=== PATIENT | female | born 1945 | race Caucasian/White ===

== ENCOUNTER 2019-12-31 12:53 | Outpatient (CLI) | payer MEDICARE, SELFPAY ==
--- NOTE | ~2019-12-31 | US_ITS ---
EXAMINATION: US renal BI EXAM DATE: 12/31/2019 13:56 INDICATION: Abdominal pain. TECHNIQUE: Multiple grayscale and Doppler images of the kidneys were obtained (by a technologist who performed the scan) and subsequently reviewed. There is no prior study for comparison. FINDINGS: Right kidney: There is normal contour and echogenicity. It measures 9.5 x 6.0 x 5.8 centimeters. Th ere are no focal renal lesions identified. There is no hydronephrosis. Left kidney: There is normal contour and echogenicity. It measures 9.1 x 4.3 x 4.0 centimeters. The re are no focal renal lesions identified. There is no hydronephrosis. Bladder unremarkable. IMPRESSION: 1. Sonographically unremarkable kidneys. Reviewed, dictated and finalized at location B.
== END 2019-12-31 12:54 | disposition home or self-care (01) ==
PROVIDERS: PCP Physician Assistant Medical; Visit Provider Nurse Practitioner Family
DX: R10.9 Unspecified abdominal pain (principal)
CPT/HCPCS: 76775

== ENCOUNTER 2020-02-03 05:06 | Emergency (ER) | payer MEDICARE, SELFPAY ==
--- NOTE | ~2020-02-03 | XR_ITS ---
XR chest 2V DATE: 02/03/2020 05:48 INDICATION: Cough, dyspnea, wheezing, shortness of breath TECHNIQUE: PA and lateral views COMPARISON: 04/26/2019 PA and lateral chest FINDINGS: Normal heart size. No hilar or mediastinal enlargement. No pulmonary infiltrate or consolid ation, pleural effusion or pulmonary vascular congestion or pneumothorax. Calcified pulmonary granulo ma of the middle lobe. Diffuse osteopenia. Mild dextroscoliosis of the thoracic spine. Surgical clips, right upper quadrant, consistent with cholecystectomy. IMPRESSION: No active cardiopulmonary disease Reviewed, dictated and finalized at location A.
[2020-02-03 05:07] VITALS: BP 125/76; PULSE 90; RESP 20; TEMP 36.8; O2SAT 97
--- NOTE | 2020-02-03 05:09 | ED.ASTHMA ---
HPI - Asthma General Chief Complaint: Asthma Stated Complaint: SOB Time Seen by Provider: 02/03/20 05:09 Source: patient and EMS Mode of arrival: EMS Limitations: no limitations History of Present Illness HPI Narrative: Patient is a 74-year-old female with a history of asthma who presents for evaluation of shortness of breath and chest pain. Patient states that she started feeling unwell over the course of the evening with increasing shortness of breath. She was using her albuterol inhaler at home without much improvement in her symptoms. She reported a tightness over her chest that was worse with any coughing or movement. She denies any current chest pain. She denies productive cough or fever. Patient denies leg swelling, calf pain or history of blood clot. Per EMS, when they arrived to her house, patient had audible expiratory wheezing and tachypnea. Patient was given 6 puffs in a row on her inhalers with much improvement in her symptoms. Related Data Home Medications Medication Instructions Recorded Confirmed buspirone 7.5 mg tablet 7.5 mg PO BID 04/26/19 11/03/19 fluticasone furoate 200 1 inhalation INHALATION Q24H 04/26/19 11/03/19 mcg-vilanterol 25 mcg/dose inhalation powder Allergies Allergy/AdvReac Type Severity Reaction Status Date / Time vancomycin Allergy Mild Rash Verified 02/03/20 05:19 Review of Systems Review of Systems: Narrative: CONSTITUTIONAL: Denies fever, chills ENT: Denies rhinorrhea, congestion, sore throat, or otalgia. CARDIOVASCULAR: Denies current chest pain, palpitations, or edema. RESPIRATORY: Reports cough and shortness of breath GASTROINTESTINAL: Denies abdominal pain, nausea, vomiting, or diarrhea. GENITOURINARY: Denies dysuria or hematuria. SKIN: Denies rash or itching. MUSCULOSKELETAL: Denies back pain, joint pain, or myalgia. NEUROLOGIC: Denies headache, numbness, or weakness. [facility] Past Medical History Medical History (Updated 02/03/20 @ 07:03 by Mary Fan MD) Bronchitis Cough present for greater than 3 weeks Essential hypertension Major depressive disorder, single episode, unspecified Seasonal allergies Shortness of breath Social History Social History Smoking status: Never smoker Smoking end date: 04/07/1966 Alcohol intake: never Exam Narrative: Exam Narrative: GENERAL: Awake, alert, conversant HEAD: Normocephalic, atraumatic. EYES: PERRLA and EOMI. ENT: Nares clear, no rhinorrhea or epistaxis. Mucous membranes moist. NECK: Supple. CHEST: No respiratory distress, breathing even and non labored, mild expiratory wheezing, no crackles at the bases, no chest wall tenderness HEART: Regular rate, sinus rhythm ABDOMEN:Non distended, non tender EXTREMITIES: Normal range of motion. No edema. SKIN: Warm, dry, no rash. NEURO:No focal deficits. Alert and oriented x3 Course Vital Signs Vital signs: Vital Signs Temperature 36.8 C 02/03/20 05:07 Pulse Rate 90 02/03/20 05:07 Respiratory Rate 20 02/03/20 05:07 Blood Pressure 125/76 02/03/20 05:07 Pulse Oximetry 97 02/03/20 05:07 Temperature 36.8 C 02/03/20 05:07 Pulse Rate 85 02/03/20 05:57 Respiratory Rate 100 H 02/03/20 05:57 Blood Pressure 125/76 02/03/20 05:07 Pulse Oximetry 97 02/03/20 05:07 MDM - Asthma MDM Narrative Medical decision making narrative: Patient presenting for evaluation of shortness of breath, audible wheezing for EMS, patient given multiple albuterol puffer treatments in route and was basically asymptomatic at the time of arrival. Patient is in no respiratory distress. No increased work of breathing. Laboratory results are reassuring. Patient does not have anginal type symptoms. Chest wall pain is only with coughing. No inspiratory pain. Given no hypoxemia, no pleuritic chest pain, no anginal type pain, I doubt PE. Patient feeling much improved following DuoNeb treatment, steroids. I
--- NOTE | 2020-02-03 05:31 | ECG_ITS ---
Measurements Intervals [place] Rate: 90 P: 64 IA: 182 QRS: 47 QRSD: 90 T: 66 QT: 351 QTc: 431 Interpretive Statements SINUS RHYTHM BASELINE ARTIFACT- I, II, III, AVR, AVL, AVF NORMAL ECG Electronically Signed On 02-03-2020 7:16:59 CDT by Lupillo Thomason D.O.
[2020-02-03] MEDS: ALBUTEROL SULFATE NEB 2.5 MG/0.5 ML INH 5 MG INHALATION (05:50)
[2020-02-03] MEDS: IPRATROPIUM BR 0.02% INH SOLN 0.5 MG/2.5 ML VIAL INHALATION (05:50)
[2020-02-03 05:51] VITALS: PULSE 84; RESP 100
[2020-02-03 05:57] VITALS: PULSE 85; RESP 100
[2020-02-03] MEDS: ACETAMINOPHEN 500 MG TABLET 1000 MG PO (06:05)
[2020-02-03] MEDS: methylPREDNISolone SOD SUCC 125 MG VIAL IV PUSH (06:05)
[2020-02-03 06:22] LABS: Basophils Absolute Auto 0.1 K/mm3 (0.0-0.1); Basophils Percent Auto 0.7 % (0.2-1.2); Eosinophils Absolute Auto 0.9 K/mm3 (0-0.3); Hematocrit 39.8 % (37.0-47.0); Immature Granulocyte Absolute 0.03 K/mm3 (0.00-0.031); Immature Granulocyte Percent A 0.4 % (0-0.5); Lymphocytes Absolute Auto 1.77 K/mm3 (0.9-3.2); Lymphocytes Percent Auto 25.1 % (18.3-44.2); Mean Corpuscular HGB Conc 32.7 g/dl (32-36); Mean Corpuscular Hemoglobin 31.4 pg (26-34); Mean Corpuscular Volume 96.1 fl (80-100); Mean Platelet Volume 11.4 fl (7.4-10.4); Monocytes Absolute Auto 0.7 K/mm3 (0.1-0.6); Monocytes Percent Auto 9.2 % (2.6-8.5); Neutrophils Absolute Auto 3.7 K/mm3 (1.3-6.7); Neutrophils Percent Auto 52.6 % (45.5-73.1); Platelet Count Result 201 k/mm3 (150-375); Red Blood Count 4.14 M/mm3 (4.2-5.4); Red Cell Distribution Width 14.2 % (11.5-14.5); White Blood Count 7.1 K/mm3 (4.5-10.0)
[2020-02-03 06:29] LABS: Partial Thromboplastin Time 24.9 SECONDS (22.3-36.8); Prothrombin Time 12.9 Seconds (11.1-14.7)
[2020-02-03 06:32] LABS: Anion Gap 9 mmol/L (8-16); Blood Urea Nitrogen 11 mg/dL (7-17); Calcium 9.9 mg/dL (8.4-10.2); Carbon Dioxide 28 mmol/L (22-30); Chloride 104 mmol/L (98-107); Estimated CRCL calculation 46 ml/min; Estimated Glomerular Filt Rate > 60; Glucose 124 mg/dL (65-105); Potassium 3.9 mmol/L (3.4-5.0); Sodium 141 mmol/L (137-145)
[2020-02-03 06:42] LABS: NT Pro B Type Natriuretic Pept 107 PG/ML (5-100); Troponin I < 0.012 ng/mL (0.000-0.034)
[2020-02-03 09:00] VITALS: BP 104/69; PULSE 67; RESP 18; O2SAT 100
== END 2020-02-03 07:23 | disposition home or self-care (01) ==
PROVIDERS: Emergency Provider Emergency Medicine; PCP Physician Assistant Medical
DX: J45.901 Unspecified asthma with (acute) exacerbation (principal); I10 Essential (primary) hypertension; F32.9 Major depressive disorder, single episode, unspecified; R07.9 Chest pain, unspecified
CPT/HCPCS: 36415; 71046; 80048; 83880; 84484; 85025; 85610; 85730; 93005; 94640; 96374; 99284; A9270; J2930

== ENCOUNTER 2020-03-09 16:34 | Emergency (ER) | payer MEDICARE, SELFPAY ==
--- NOTE | ~2020-03-09 | CT_ITS ---
EXAMINATION: CT brain wo con DATE: 03/09/2020 17:16 INDICATION: Headache TECHNIQUE: Computed tomography (CT) of the head was performed without intravenous contrast. Sagittal and coronal reconstructions were performed. The mA was adjusted according to patient size. Iterative reconstruction technique was employed. The dose-length product was 605.33 mGy-cm. COMPARISON: head CT dated 05/02/2013 and brain MR dated 12/15/2017 FINDINGS: No acute intracranial hemorrhage, acute infarction or abnormal extra axial fluid collection. And mild periventricular white matter hypoattenuation consistent with chronic small vessel ischemic disease. Symmetric prominence of the sulci consistent with mild age-appropriate diffuse cerebral volume loss. Ventricles are normal and symmetric. No mass/mass effect. Changes of bilateral intraocular lens repl acement. Mucous retention cyst in the right maxillary sinus and mild mucosal thickening in the bilate ral ethmoid sinuses. The mastoid air cells are normal. Intracranial calcified cerebral atherosclerosi s is noted. IMPRESSION: 1. No acute intracranial process. 2. Age related changes including mild diffuse volume loss and mild periventricular white matter hypoa ttenuation consistent with chronic small vessel ischemic disease. Reviewed, dictated and finalized at location A. PTIC METEOROLOGIST IMPRESSION: 1. No acute intracranial process. 2. Age related changes including mild diffuse volume loss and mild periventricu lar white matter hypoattenuation consistent with chronic small vessel ischemic disease.
[2020-03-09 16:33] VITALS: BP 144/66; PULSE 95; RESP 18; TEMP 36.2; O2SAT 98
[2020-03-09 17:02] LABS: Basophils Percent Auto 0.1 % (0.2-1.2); Eosinophils Percent Auto 0.1 % (0-4.4); Hematocrit 37.6 % (37.0-47.0); Hemoglobin 12.4 g/dL (12.0-15.0); Immature Granulocyte Absolute 0.03 K/mm3 (0.00-0.031); Immature Granulocyte Percent A 0.4 % (0-0.5); Immature Platelet Fraction Pct 5.1 % (0.9-11.2); Lymphocytes Absolute Auto 0.57 K/mm3 (0.9-3.2); Lymphocytes Percent Auto 7.7 % (18.3-44.2); Mean Corpuscular Hemoglobin 32.1 pg (26-34); Mean Corpuscular Volume 97.4 fl (80-100); Mean Platelet Volume 10.8 fl (7.4-10.4); Monocytes Absolute Auto 0.6 K/mm3 (0.1-0.6); Monocytes Percent Auto 8.3 % (2.6-8.5); Neutrophils Absolute Auto 6.2 K/mm3 (1.3-6.7); Neutrophils Percent Auto 83.4 % (45.5-73.1); Platelet Count Result 146 k/mm3 (150-375); Red Blood Count 3.86 M/mm3 (4.2-5.4); Red Cell Distribution Width 13.9 % (11.5-14.5); White Blood Count 7.4 K/mm3 (4.5-10.0)
[2020-03-09] MEDS: SODIUM CHLORIDE 0.9% IV 1,000 ML 150 ML IV CONT (17:04)
[2020-03-09] MEDS: PROCHLORPERAZINE EDISYLATE 10 MG/2 ML VIAL 5 MG IV PUSH (17:04)
[2020-03-09] MEDS: KETOROLAC 30 MG/ML VIAL (*BKC) IV PUSH (17:04)
[2020-03-09 17:16] LABS: Anion Gap 7 mmol/L (8-16); Blood Urea Nitrogen 18 mg/dL (7-17); Calcium 9.4 mg/dL (8.4-10.2); Carbon Dioxide 29 mmol/L (22-30); Chloride 100 mmol/L (98-107); Estimated CRCL calculation 49 ml/min; Estimated Glomerular Filt Rate > 60; Glucose 104 mg/dL (65-105); Potassium 4.4 mmol/L (3.4-5.0); Sodium 136 mmol/L (137-145)
[2020-03-09 17:29] LABS: CRP 15.5 mg/dL (<1.0)
--- NOTE | 2020-03-09 18:16 | ED.HA ---
HPI - Headache General Chief Complaint: Headache Stated Complaint: [place] since 03/07/20 Time Seen by Provider: 03/09/20 16:35 Source: patient Mode of arrival: EMS Limitations: no limitations History of Present Illness HPI Narrative: 74-year-old with a history of headaches, hypertension was brought in ambulance from home with complaints of headache for past 2 days. Patient states that headache has been steady for last 2 days mostly on the right side of the head with occasional nausea. She denies any fever or chills. No history of trauma. No Covid exposure. Related Data Home Medications Medication Instructions Recorded Confirmed buspirone 7.5 mg tablet 7.5 mg PO BID 04/26/19 02/04/20 fluticasone furoate 200 1 inhalation INHALATION Q24H 04/26/19 02/04/20 mcg-vilanterol 25 mcg/dose inhalation powder Allergies Allergy/AdvReac Type Severity Reaction Status Date / Time vancomycin Allergy Mild Rash Verified 03/09/20 16:39 Review of Systems Review of Systems: All systems reviewed & are unremarkable except as noted in HPI and below Constitutional: Constitutional: Reports no additional constitutional complaints Eyes: Eyes: Reports no additional eye complaints ENT: Reports system reviewed and no additional complaints, except as documented Cardiovascular: Cardiovascular: Reports no additional cardiovascular complaints Respiratory: Respiratory: Reports no additional respiratory complaints Gastrointestinal: Gastrointestinal: Reports no additional gastrointestinal complaints Musculoskeletal: Musculoskeletal: Reports no additional musculoskeletal complaints Neurologic: Reports as per HPI PMFSH Past Medical History Medical History Bronchitis Cough present for greater than 3 weeks Essential hypertension Major depressive disorder, single episode, unspecified Seasonal allergies Shortness of breath Social History Social History Smoking status: Never smoker Smoking end date: 04/07/1966 Alcohol intake: never Exam Narrative: Exam Narrative: GENERAL: Well-appearing, well-nourished, and in no acute distress. HEAD: Normocephalic, atraumatic. EYES: PERRLA and EOMI NECK: Supple. CHEST: Clear to auscultation. No respiratory distress. HEART: Regular rate and rhythm. No murmur heard. Normal peripheral pulses. ABDOMEN: Soft, nontender, nondistended, normal active bowel sounds. EXTREMITIES: Normal range of motion. No edema. SKIN: Warm, dry, no rash. NEURO: No focal deficits. Alert and oriented x3. PSYCH: Normal mood and affect. Course Course Emergency Course: Did give her IV Toradol 30 mg along with 5 mg of Compazine and IV fluids did obtain CT of the head which was unremarkable, lab work seem to be normal. I reassessed the patient she states that she is feeling much better, headache has resolved I did inform the patient about her lab work, CT findings. She states that she is feeling much better to go home Vital Signs Vital signs: Vital Signs Temperature 36.2 C L 03/09/20 16:33 Pulse Rate 95 03/09/20 16:33 Respiratory Rate 18 03/09/20 16:33 Blood Pressure 144/66 H 03/09/20 16:33 Pulse Oximetry 98 03/09/20 16:33 Temperature 36.2 C L 03/09/20 16:33 Pulse Rate 95 03/09/20 16:33 Respiratory Rate 18 03/09/20 16:33 Blood Pressure 144/66 H 03/09/20 16:33 Pulse Oximetry 98 03/09/20 16:33 MDM - Headache Lab Data Result diagrams: 03/09/20 16:54 03/09/20 16:54 Labs: Lab Results 03/09/20 03/09/20 Range/Units 16:54 16:54 WBC 7.4 (4.5-10.0) K/mm3 RBC 3.86 L (4.2-5.4) M/mm3 Hgb 12.4 (12.0-15.0) g/dL Hct 37.6 (37.0-47.0) % MCV 97.4 (80-100) fl MCH 32.1 (26-34) pg MCHC 33.0 (32-36) g/dl RDW 13.9 (11.5-14.5) % Plt Count 146 L (150-375) k/mm3 MPV 10.8 H (7.4-10.4) fl Immature Gran % (Auto) 0.4 (0-0.5)
[2020-03-09 18:31] VITALS: BP 137/64; PULSE 93; RESP 18; O2SAT 96
== END 2020-03-09 18:35 | disposition home or self-care (01) ==
PROVIDERS: Emergency Provider Family Medicine; PCP Physician Assistant Medical
DX: G43.909 Migraine, unspecified, not intractable, without status migrainosus (principal); I10 Essential (primary) hypertension; F32.9 Major depressive disorder, single episode, unspecified
CPT/HCPCS: 36415; 70450; 80048; 85025; 85055; 86140; 96361; 96374; 96375; 99284; J0780; J1885; J7030

== ENCOUNTER 2020-09-20 09:38 | Emergency (ER) | payer MEDICARE, SELFPAY ==
[2020-09-20] VITALS (22 sets, daily range): BP systolic 108–180; BP diastolic 48–86; PULSE 74–106; RESP 15–29; TEMP 36.3; O2SAT 92–100
--- NOTE | ~2020-09-20 | XR_ITS ---
EXAMINATION: XR chest 1V portable EXAM DATE: 09/20/2020 10:36 INDICATION: Fever, cough. TECHNIQUE: Portable AP frontal chest x-ray was obtained. Comparison is made to prior examination from 02/03/2020. FINDINGS: Right midlung zone granuloma unchanged. The lungs are otherwise clear. There is no pneumoth orax suspected. There are no pleural effusions. Cardiomediastinal silhouette is normal. The bones are osteopenic. There are bony degenerative changes. Mild hyperinflation. IMPRESSION: No acute cardiopulmonary findings. Reviewed, dictated and finalized at location B.
--- NOTE | 2020-09-20 09:59 | ECG_ITS ---
Measurements Intervals [place] Rate: 87 P: 64 RI: 180 QRS: 46 QRSD: 86 T: 57 QT: 348 QTc: 419 Interpretive Statements SINUS RHYTHM NORMAL ECG Electronically Signed On 09-20-2020 10:26:36 CDT by Lupillo Thomason D.O.
--- NOTE | 2020-09-20 10:02 | ED.SOB ---
HPI - SOB/Dyspnea General Chief Complaint: Shortness of Breath/Dyspnea Stated Complaint: SOB Time Seen by Provider: 09/20/20 09:40 Source: patient and RN notes reviewed Mode of arrival: ambulatory Limitations: no limitations History of Present Illness HPI Narrative: Patient is a 74-year-old female who presents with shortness of breath for the last 3 to 4 days patient notes history of asthma has been using her inhalers and nebulizer with minimal improvement patient notes cough productive of clear phlegm patient denies fever chills or other URI symptoms or sick contacts patient has not been vaccinated for Covid patient lives at home with family with smokers but they smoke outside. Patient has not been seen for this complaint. Patient denies any chest pain or abdominal pain Related Data Home Medications Medication Instructions Recorded Confirmed buspirone 7.5 mg tablet 7.5 mg PO BID 04/26/19 04/19/20 fluticasone furoate 200 1 inhalation INHALATION Q24H 04/26/19 04/19/20 mcg-vilanterol 25 mcg/dose inhalation powder Allergies Allergy/AdvReac Type Severity Reaction Status Date / Time vancomycin Allergy Mild Rash Verified 09/20/20 10:02 Review of Systems Review of Systems: All systems reviewed & are unremarkable except as noted in HPI and below PMFSH Past Medical History Medical History BMI 28.0-28.9,adult Bronchitis Cough present for greater than 3 weeks Essential hypertension Major depressive disorder, single episode, unspecified Seasonal allergies Shortness of breath Social History Social History Smoking status: Never smoker Smoking end date: 04/07/1966 Alcohol intake: never Gender identity (if verbalized by the patient): Female Exam Narrative: Exam Narrative: GENERAL: Well-appearing, well-nourished, and in no acute distress. HEAD: Normocephalic, atraumatic. EYES: PERRLA and EOMI. ENT: Nares clear, no rhinorrhea or epistaxis. Mucous membranes moist. CHEST: Diminished on auscultation. No respiratory distress. Patient with expiratory wheezes throughout the lung barry HEART: Regular rate and rhythm. No murmur heard. Normal peripheral pulses. ABDOMEN: Soft, nontender, nondistended EXTREMITIES: Normal range of motion. No edema. SKIN: Warm, dry, no rash. NEURO: No focal deficits. Alert and oriented x3. Cranial nerves II through XII grossly intact PSYCH: Normal mood and affect. Course Course Emergency Course: Patient in the room at this time in no distress aware of case findings treatment plan and diagnosis. Patient agrees to follow-up as instructed and will return if symptoms worsen or concerns Vital Signs Vital signs: Vital Signs Temperature 97.4 F L 09/20/20 09:45 Pulse Rate 88 09/20/20 09:45 Respiratory Rate 16 09/20/20 09:45 Blood Pressure 180/86 H 09/20/20 09:45 Pulse Oximetry 98 09/20/20 09:45 Temperature 97.4 F L 09/20/20 09:45 Pulse Rate 100 09/20/20 13:11 Respiratory Rate 19 09/20/20 13:11 Blood Pressure 180/86 H 09/20/20 09:45 Pulse Oximetry 98 09/20/20 09:45 MDM - SOB/Dyspnea MDM Narrative Medical decision making narrative: Patient presented with asthma exacerbation no URI symptoms patient with likely asthma exacerbation was given an hour-long treatment with marked improvement no hypoxemia no pneumonia agreeing to follow-up with primary care as instructed has nebulizer at home as well as rescue inhalers was given an MDI patient feels comfortable with this treatment plan and also agrees to return if symptoms worsen or concerns ABCs and vital signs intact and stable Lab Data Result diagrams: 09/20/20 10:04 09/20/20 10:03 Labs: Lab Results 09/20/20 09/20/20 09/20/20 Range/Units 10:03 10:03 10:04 WBC 6.4 (4.5-10.0) K/mm3 RBC 4.10 L (4.2-5.4) M/mm3 Hgb 11.8 L (12.0-15.0) g/dL Hct 37.8
[2020-09-20] MEDS: ALBUTEROL SULFATE NEB 2.5 MG/0.5 ML INH 5 MG INHALATION (10:10)
[2020-09-20] MEDS: IPRATROPIUM BR 0.02% INH SOLN 0.5 MG/2.5 ML VIAL INHALATION (10:10)
[2020-09-20 10:18] LABS: Basophils Absolute Auto 0.1 K/mm3 (0.0-0.1); Basophils Percent Auto 0.8 % (0.2-1.2); Eosinophils Absolute Auto 0.7 K/mm3 (0-0.3); Eosinophils Percent Auto 11.2 % (0-4.4); Hematocrit 37.8 % (37.0-47.0); Hemoglobin 11.8 g/dL (12.0-15.0); Immature Granulocyte Absolute 0.02 K/mm3 (0.00-0.031); Immature Granulocyte Percent A 0.3 % (0-0.5); Lymphocytes Percent Auto 20.5 % (18.3-44.2); Mean Corpuscular HGB Conc 31.2 g/dl (32-36); Mean Corpuscular Hemoglobin 28.8 pg (26-34); Mean Corpuscular Volume 92.2 fl (80-100); Mean Platelet Volume 10.7 fl (7.4-10.4); Monocytes Absolute Auto 0.7 K/mm3 (0.1-0.6); Monocytes Percent Auto 11.3 % (2.6-8.5); Neutrophils Absolute Auto 3.6 K/mm3 (1.3-6.7); Neutrophils Percent Auto 55.9 % (45.5-73.1); Platelet Count Result 211 k/mm3 (150-375); Red Cell Distribution Width 15.6 % (11.5-14.5); White Blood Count 6.4 K/mm3 (4.5-10.0)
[2020-09-20] MEDS: MAGNESIUM SULF 2 GM/WATER 50ML 2 GM/50 ML BAG IVPB (10:21)
[2020-09-20] MEDS: methylPREDNISolone SOD SUCC 125 MG VIAL IV PUSH (10:21)
[2020-09-20 10:23] LABS: Alanine Aminotransferase 18 U/L (4-35); Albumin Level 4.2 g/dL (3.5-5.1); Alkaline Phosphatase 133 U/L (38-126); Anion Gap 8 mmol/L (8-16); Aspartate Amino Transferase 34 U/L (14-36); Bilirubin,Total 0.5 mg/dL (0.2-1.3); Blood Urea Nitrogen 9 mg/dL (7-17); Calcium 9.7 mg/dL (8.4-10.2); Carbon Dioxide 28 mmol/L (22-30); Chloride 104 mmol/L (98-107); Estimated CRCL calculation 43 ml/min; Estimated Glomerular Filt Rate 54; Glucose 101 mg/dL (65-105); INR 0.9; Potassium 4.3 mmol/L (3.4-5.0); Prothrombin Time 12.6 Seconds (11.1-14.7); Sodium 140 mmol/L (137-145)
[2020-09-20 10:24] LABS: Partial Thromboplastin Time 24.8 SECONDS (22.3-36.8)
[2020-09-20 10:34] LABS: Troponin I < 0.012 ng/mL (0.000-0.034)
[2020-09-20 10:54] LABS: Add Urine Microscopic? NO; Appearance Urine Clear (Clear); Bilirubin Urine Negative (Negative); Blood Urine Negative (Negative); Color Urine Straw (Yellow); Glucose Urine UA Negative (Negative); Ketones Urine Negative (Negative); Leukocyte Esterase Ur Negative LEU/UL (Negative); Nitrate Urine Negative (Negative); Protein Urine Negative (Negative); Specific Grav Ur 1.006 (1.001-1.035); Urobilinogen Urine Negative mg/dL (<2.0)
[2020-09-20] MEDS: ALBUTEROL SULFATE NEB 2.5 MG/0.5 ML INH 20 MG INHALATION (12:02)
[2020-09-20 13:53] LABS: Troponin I < 0.012 ng/mL (0.000-0.034)
[2020-09-21 17:59] LABS: SARS-CoV-2 RNA PCR Negative
== END 2020-09-20 15:00 | disposition home or self-care (01) ==
PROVIDERS: Emergency Medicine Emergency Medical Services; Emergency Provider Emergency Medicine; PCP Physician Assistant Medical
DX: J20.9 Acute bronchitis, unspecified (principal); J45.909 Unspecified asthma, uncomplicated; I10 Essential (primary) hypertension; F32.9 Major depressive disorder, single episode, unspecified; Z20.822 Contact with and (suspected) exposure to COVID-19
CPT/HCPCS: 36415; 71045; 80053; 81003; 84484; 85025; 85610; 85730; 93005; 94640; 96365; 96375; 99284; C9803; J2930; J3475; U0003; U0005

== ENCOUNTER 2020-12-27 07:45 | Outpatient (CLI) | payer MEDICARE, SELFPAY ==
--- NOTE | ~2020-12-27 | US_ITS ---
US art doppler w press LE BI INDICATION: Right toe pain TECHNIQUE: Segmental pressures and plethysmographic and Doppler waveforms of the brachial and lower e xtremity arteries were obtained. COMPARISON: None. FINDINGS: Right and left brachial artery pressures of 161 mm Hg and 161 mm Hg, respectively, are concordant (no rmal difference <= 30 mmHg). The right ankle-brachial index (BRODY) is 1.11 (normal >= 0.9-1.0). The right great toe-brachial index (TBI) is 0.82 (normal >= 0.60). The left BRODY is 1.13. The left TBI is 0.96. IMPRESSION: 1. Normal bilateral ankle and toe brachial indices. Reviewed, dictated and finalized at location A.
== END 2020-12-27 07:46 | disposition home or self-care (01) ==
PROVIDERS: PCP Family Medicine; Visit Provider Nurse Practitioner Family
DX: M79.674 Pain in right toe(s) (principal); M79.89 Other specified soft tissue disorders
CPT/HCPCS: 93923

== ENCOUNTER 2021-02-26 08:26 | Emergency (ER) | payer MEDICARE, SELFPAY ==
--- NOTE | ~2021-02-26 | CT_ITS ---
EXAMINATION: CT brain wo con EXAM DATE: 02/26/2021 08:43 INDICATION: Headache, left ear infection. TECHNIQUE: Spiral CT of the head was performed without contrast. Axial, coronal and sagittal images were reviewed. The dose-length product (DLP) for this examination was 605.33 mGy-cm. The exposure w as tailored according to patient size, and iterative reconstruction (ASIR) was used as additional dos e reduction technique. Comparison is made to prior examination from 03/09/2020. FINDINGS: There is no acute intraparenchymal hemorrhage. No evidence of intraparenchymal brain mass lesion. No evidence of acute infarction. Please note that initial head CT has limited sensitivity f or small or acute infarctions. There is mild periventricular and subcortical hypodensity, nonspecific but probably related to small vessel ischemic disease. There is moderate prominence of the sulci a nd ventricles related to cerebral atrophy. There is intracranial carotid arteriosclerosis. There a re no extra-axial collections. There is no mass effect or midline shift. Patient has had bilateral ocular lens surgery. Soft tissue is unremarkable. The visualized sinuses and mastoid air cells are well aerated. The middle ears are also well aerated. IMPRESSION: 1. No acute intracranial findings. 2. Chronic age related findings. 3. Clear mastoid air cells and middle ears. Reviewed, dictated and finalized at location A. CHOPPER
[2021-02-26 08:29] VITALS: BP 129/87; PULSE 84; RESP 14; O2SAT 98
--- NOTE | 2021-02-26 08:47 | ED.HA ---
HPI - Headache General Chief Complaint: Headache Stated Complaint: headache Time Seen by Provider: 02/26/21 08:32 Source: patient Mode of arrival: ambulatory Limitations: no limitations History of Present Illness HPI Narrative: Patient is a 75-year-old female complaining of a headache, generalized, 6 out of 10, currently 0 out of 10, started 3 days ago. Patient states that she has a history of moderate headaches, and this is her typical headache. Patient was seen here approximately 1 year ago for the same complaint, had a CT scan of her head did not show any acute cranial process. Patient denies any speech or visual disturbance, focal weakness or numbness, unsteady gait, dizziness, pain, nausea, vomiting, fever or chills. Related Data Home Medications Medication Instructions Recorded Confirmed buspirone 7.5 mg tablet 7.5 mg PO BID 04/26/19 01/22/21 Allergies Allergy/AdvReac Type Severity Reaction Status Date / Time vancomycin Allergy Mild Rash Verified 02/26/21 08:52 Review of Systems Review of Systems: All systems reviewed & are unremarkable except as noted in HPI and below Constitutional: Constitutional: Denies body ache(s), Denies chills, Denies excessive sweating, Denies fatigue, Denies fever(s), Denies headache(s), Denies lethargy, Denies malaise, Denies weakness and Denies weight loss Eyes: Eyes: Denies blurry vision, Denies change in vision and Denies loss of vision ENT: Denies dizziness, Denies ear discharge, Denies headache(s), Denies lip swelling, Denies epistaxis, Denies nasal congestion, Denies neck pain, Denies throat swelling and Denies tongue swelling Cardiovascular: Cardiovascular: Denies chest pain, Denies chest pain at rest, Denies chest pain with activity, Denies diaphoresis, Denies rapid heart rate, Denies edema, Denies irregular heart rhythm, Denies lightheadedness, Denies palpitations, Denies dyspnea and Denies dyspnea on exertion Respiratory: Respiratory: Denies chest congestion, Denies cough, Denies hemoptysis, Denies dyspnea and Denies dyspnea on exertion Gastrointestinal: Gastrointestinal: Denies abdominal pain, Denies melena, Denies hematochezia, Denies diarrhea, Denies nausea, Denies vomiting and Denies hematemesis Musculoskeletal: Musculoskeletal: Denies abnormal gait, Denies deformity, Denies joint swelling, Denies limited range of motion, Denies neck pain and Denies numbness Neurologic: Denies Abnormal speech present, Denies abnormal gait, Denies confusion, Denies dizziness, Denies focal weakness, Denies loss of vision, Denies numbness, Denies Other visual disturbances, Denies Sensory deficit (Neuro) and Denies weakness Psychiatric: Psychiatric: Denies confusion, Denies depression, Denies auditory hallucinations, Denies homicidal ideation and Denies suicidal ideation Endocrine: Endocrine: Denies cold intolerance, Denies excessive sweating, Denies fatigue, Denies heat intolerance and Denies palpitations Hematologic/Lymphatic: Hematologic/Lymphatic: Denies easy bleeding and Denies easy bruising Allergic/Immunologic: Allergic/Immunologic: Denies lip swelling, Denies throat swelling and Denies tongue swelling PMFSH Past Medical History Medical History BMI 26.0-26.9,adult BMI 28.0-28.9,adult BMI 29.0-29.9,adult Bronchitis Cough present for greater than 3 weeks Essential hypertension Major depressive disorder, single episode, unspecified Other specified symptoms and signs involving the circulatory and respiratory systems Pain in right toe(s) Seasonal allergies Shortness of breath Family History Family History Father Cancer H/O cirrhosis Mother Acute myocardial infarction Sibling Cancer Sibling Cancer Tobacco abuse Social History Social History Tobacco type: cigarettes S
[2021-02-26 09:03] LABS: Basophils Absolute Auto 0.1 K/mm3 (0.0-0.1); Basophils Percent Auto 1.1 % (0.2-1.2); Eosinophils Absolute Auto 0.4 K/mm3 (0-0.3); Eosinophils Percent Auto 7.6 % (0-4.4); Hematocrit 37.9 % (37.0-47.0); Hemoglobin 12.7 g/dL (12.0-15.0); Immature Granulocyte Absolute 0.01 K/mm3 (0.00-0.031); Immature Granulocyte Percent A 0.2 % (0-0.5); Lymphocytes Absolute Auto 1.44 K/mm3 (0.9-3.2); Lymphocytes Percent Auto 26.6 % (18.3-44.2); Mean Corpuscular HGB Conc 33.5 g/dl (32-36); Mean Corpuscular Hemoglobin 31.8 pg (26-34); Mean Platelet Volume 10.5 fl (7.4-10.4); Monocytes Absolute Auto 0.6 K/mm3 (0.1-0.6); Monocytes Percent Auto 11.6 % (2.6-8.5); Neutrophils Absolute Auto 2.9 K/mm3 (1.3-6.7); Neutrophils Percent Auto 52.9 % (45.5-73.1); Platelet Count Result 213 k/mm3 (150-375); Red Blood Count 3.99 M/mm3 (4.2-5.4); Red Cell Distribution Width 12.7 % (11.5-14.5); White Blood Count 5.4 K/mm3 (4.5-10.0)
[2021-02-26 09:54] LABS: Anion Gap 4 mmol/L (8-16); Blood Urea Nitrogen 10 mg/dL (7-17); Calcium 9.7 mg/dL (8.4-10.2); Carbon Dioxide 29 mmol/L (22-30); Chloride 106 mmol/L (98-107); Estimated CRCL calculation 41 ml/min; Estimated Glomerular Filt Rate > 60; Glucose 90 mg/dL (65-110); Potassium 4.6 mmol/L (3.4-5.0); Sodium 139 mmol/L (137-145)
[2021-02-26] MEDS: KETOROLAC 30 MG/ML VIAL (*BKC) IM (10:51)
[2021-02-26 12:15] VITALS: BP 128/83; PULSE 83; RESP 18; O2SAT 99
== END 2021-02-26 12:16 | disposition home or self-care (01) ==
PROVIDERS: Emergency Provider Emergency Medicine
DX: G43.909 Migraine, unspecified, not intractable, without status migrainosus (principal); I10 Essential (primary) hypertension; F32.9 Major depressive disorder, single episode, unspecified; Z87.891 Personal history of nicotine dependence
CPT/HCPCS: 36415; 70450; 80048; 85025; 96372; 99284; J1885

== ENCOUNTER 2021-05-17 12:53 | Emergency (ER) | payer MEDICARE, SELFPAY ==
[2021-05-17 12:57] VITALS: BP 99/55; PULSE 104; RESP 17; TEMP 36.2; O2SAT 100
--- NOTE | 2021-05-17 13:10 | PC.NURSE ---
pt states has a test here on june 06 for the foot and leg numbness she has had for the last year. states today numbness went up both of her legs and states they felt like rubber. pt denies history of diabetes
--- NOTE | 2021-05-17 13:34 | ED.EXTPRO ---
HPI - Extremity Problem General Chief complaint: Extremity Problem,Nontraumatic Stated complaint: numbess in adrien legs Time Seen by Provider: 05/17/21 13:22 Source: patient Mode of arrival: ambulatory Limitations: no limitations History of Present Illness HPI Narrative: Patient 75 years old white female reports over the emergency room because of worsening of the tingling numbness of the feet and lower extremities over the last few days. Patient is telling me that she have tingling numbness of the feet over 1 year ago, was seen by her family physician recently on the schedule for a test on June 06, 2021. Patient yesterday went out for shopping and felt like walking on a rubbery floor. Patient denies any fever, chills, nausea, vomiting, weakness or focal neuro deficit. Patient also denies any back pain. Patient denies patient denies bowel dysfunction, bladder dysfunction, altered sensation, focal weakness, or saddle numbness, Related Data Home Medications Medication Instructions Recorded Confirmed buspirone 7.5 mg tablet 7.5 mg PO BID 04/26/19 01/22/21 Allergies Allergy/AdvReac Type Severity Reaction Status Date / Time vancomycin Allergy Mild Rash Verified 05/17/21 13:12 Review of Systems Review of Systems: CONSTITUTIONAL: Denies fever, chills, or sweats. EYES: Denies visual changes, redness, or discharge. ENT: Denies rhinorrhea, congestion, sore throat, or otalgia. CARDIOVASCULAR: Denies chest pain, palpitations, or edema. RESPIRATORY: Denies cough or dyspnea. GASTROINTESTINAL: Denies abdominal pain, nausea, vomiting, or diarrhea. GENITOURINARY: Denies dysuria or hematuria. SKIN: Denies rash or itching. MUSCULOSKELETAL: Denies back pain, joint pain, or myalgia. NEUROLOGIC: Denies headache, numbness, or weakness. PSYCHIATRIC: Denies anxiety or depression. [facility] Past Medical History Medical History BMI 26.0-26.9,adult BMI 28.0-28.9,adult BMI 29.0-29.9,adult Bronchitis Cough present for greater than 3 weeks Essential hypertension Major depressive disorder, single episode, unspecified Other specified symptoms and signs involving the circulatory and respiratory systems Pain in right toe(s) Seasonal allergies Shortness of breath Family History Family History Father Cancer H/O cirrhosis Mother Acute myocardial infarction Sibling Cancer Sibling Cancer Tobacco abuse Social History Social History Tobacco type: cigarettes Smoking end date: 04/07/1966 Alcohol intake: former Substance use: never Substance use type: does not use Additional occupation/education comments: [employer] Gender identity (if verbalized by the patient): Female Exam Narrative: General appearance: Well-developed, well-nourished Skin: Normal color Head: Normocephalic, nontraumatic Eyes: Clear conjunctiva ENT: Oropharynx normal, ears normal, nose normal Neck: Supple, nontender Chest and respiratory: Airway patent, no respiratory distress, no accessory muscle use Heart: Regular rate/rhythm Abdomen: Soft, nontender, no organomegaly, quiet bowel sounds Vascular: Normal peripheral pulses, normal capillary refill. Musculoskeletal: Normal range of motion, nontender back Neurologic: Alert and oriented ?3, decreased sensation on the feet and distal legs bilaterally, no gross motor deficit Course Course Emergency Course: Stable Vital Signs Vital signs: Vital Signs Temperature 36.2 C L 05/17/21 12:57 Pulse Rate 104 H 05/17/21 12:5
[2021-05-17 13:48] LABS: Basophils Percent Auto 0.8 % (0.2-1.2); Eosinophils Absolute Auto 0.2 K/mm3 (0-0.3); Eosinophils Percent Auto 5.2 % (0-4.4); Hematocrit 37.3 % (37.0-47.0); Hemoglobin 12.2 g/dL (12.0-15.0); Immature Granulocyte Absolute 0.02 K/mm3 (0.00-0.031); Immature Granulocyte Percent A 0.5 % (0-0.5); Mean Corpuscular HGB Conc 32.7 g/dl (32-36); Mean Corpuscular Hemoglobin 30.7 pg (26-34); Mean Corpuscular Volume 93.7 fl (80-100); Monocytes Absolute Auto 0.5 K/mm3 (0.1-0.6); Monocytes Percent Auto 13.6 % (2.6-8.5); Neutrophils Absolute Auto 2.2 K/mm3 (1.3-6.7); Neutrophils Percent Auto 58.9 % (45.5-73.1); Platelet Count Result 214 k/mm3 (150-375); Red Blood Count 3.98 M/mm3 (4.2-5.4); Red Cell Distribution Width 13.9 % (11.5-14.5); White Blood Count 3.8 K/mm3 (4.5-10.0)
[2021-05-17 14:28] LABS: Alanine Aminotransferase 18 U/L (4-35); Albumin Level 4.2 g/dL (3.5-5.1); Alkaline Phosphatase 135 U/L (38-126); Anion Gap 7 mmol/L (8-16); Aspartate Amino Transferase 27 U/L (14-36); Bilirubin,Total 0.6 mg/dL (0.2-1.3); Blood Urea Nitrogen 18 mg/dL (7-17); Calcium 9.7 mg/dL (8.4-10.2); Carbon Dioxide 25 mmol/L (22-30); Chloride 108 mmol/L (98-107); Estimated CRCL calculation 34 ml/min; Estimated Glomerular Filt Rate 48; Glucose 103 mg/dL (65-110); Potassium 4.1 mmol/L (3.4-5.0); Sodium 140 mmol/L (137-145)
[2021-05-17 14:56] LABS: Thyroid Stimulating Hormone 0.966 uIU/mL (0.465-4.680)
[2021-05-17 16:30] VITALS: BP 113/69; PULSE 85; RESP 19
== END 2021-05-17 16:30 | disposition home or self-care (01) ==
PROVIDERS: Emergency Provider Emergency Medicine; PCP Family Medicine
DX: G62.9 Polyneuropathy, unspecified (principal); Z87.891 Personal history of nicotine dependence; I10 Essential (primary) hypertension; F32.9 Major depressive disorder, single episode, unspecified
CPT/HCPCS: 36415; 80053; 84443; 85025; 99283

== ENCOUNTER 2021-06-06 08:36 | Outpatient (CLI) | payer MEDICARE, SELFPAY ==
--- NOTE | 2021-06-06 11:00 | NEURO_ITS ---
Impression: # Complains of numbness of feet. 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 # No Tarsal Tunnel Syndrome noted. # Needle/EMG exam neurogenic with no active denervation. # Clinical correlation recommended. Nerve Conduction Studies Anti Sensory Summary Table Stim Site NR Peak (ms) P-T Amp (?V) Site1 Site2 Delta-P (ms) Dist (cm) [place] (m/s) Left Sup Fibular Anti Sensory (Ant Lat Mall) NO RESPONSE 14 cm NR 14 cm Ant Lat Mall 16.0 Right Sup Fibular Anti Sensory (Ant Lat Mall) 14 cm 3.5 10.0 14 cm Ant Lat Mall 3.5 16.0 46 Left Sural Anti Sensory (Lat Mall) NO RESPONSE Calf NR Calf Lat Mall 16.0 Right Sural Anti Sensory (Lat Mall) Calf 3.7 15.2 Calf Lat Mall 3.7 16.0 43 Motor Summary Table Stim Site NR Onset (ms) O-P Amp (mV) Site1 Site2 Delta-0 (ms) Dist (cm) [place] (m/s) Left Lateral Plantar Motor (ADM) Med Mall 4.8 0.4 Right Lateral Plantar Motor (ADM) Med Mall 4.8 0.2 Left Peroneal Motor (Vastus Med) Ankle 5.3 2.0 Popit Ankle 9.5 38.0 40 Popit 14.8 2.0 Right Peroneal Motor (Vastus Med) Ankle 5.8 1.6 Popit Ankle 8.7 38.0 44 Popit 14.5 1.2 Left Tibial Motor (Abd [place] Brev) Ankle 4.9 0.4 Knee Ankle 14.1 43.0 30 Knee 19.0 0.7 Right Tibial Motor (Abd [place] Brev) Ankle 5.6 0.4 Knee Ankle 10.3 41.0 40 Knee 15.9 0.2 F Wave Studies NR F-Lat (ms) L-R F-Lat (ms) Left Peroneal (Mrkrs) (EDB) 56.83 1.92 Right Peroneal (Mrkrs) (EDB) 58.75 1.92 Left Tibial (Mrkrs) (Abd Hallucis) 59.30 0.58 Right Tibial (Mrkrs) (Abd Hallucis) 58.71 0.58 EMG Side Muscle Nerve Root Ins Act Fibs Amp Dur Recrt Comment Right AntTibialis Dp Br Fibular L4-5 Nml Nml Nml Nml Nml Right Gastroc Tibial S1-2 Nml Nml Nml Nml Nml Right Fibularis Long Sup Br Fibular L5-S1 Nml Nml Nml Nml Nml Right Flex Dig Long Tibial L5-S2 Nml Nml Nml Nml Nml Right Ext Dig Brev Dp Br Fibular L5, S1 Nml Nml Nml >12ms Reduced Left AntTibialis Dp Br Fibular L4-5 Nml Nml Nml Nml Nml Left Gastroc Tibial S1-2 Nml Nml Nml Nml Nml Left Fibularis Long Sup Br Fibular L5-S1 Nml Nml Nml Nml Nml Left Flex Dig Long Tibial L5-S2 Nml Nml Nml Nml Nml Left Ext Dig Brev Dp Br Fibular L5, S1 Nml Nml Nml >12ms Reduced MTDD
== END 2021-06-06 08:37 | disposition home or self-care (01) ==
LOC: ANHNEURO 08:37
PROVIDERS: PCP Family Medicine; Visit Provider Nurse Practitioner Family
DX: R20.2 Paresthesia of skin (principal); G62.9 Polyneuropathy, unspecified
CPT/HCPCS: 95886; 95911

== ENCOUNTER 2021-09-26 11:23 | Outpatient (CLI) | payer MEDICARE, SELFPAY ==
[2021-09-26 12:04] LABS: Anion Gap 7 mmol/L (8-16); Blood Urea Nitrogen 13 mg/dL (7-17); Calcium 8.7 mg/dL (8.4-10.2); Carbon Dioxide 24 mmol/L (22-30); Chloride 109 mmol/L (98-107); Estimated Glomerular Filt Rate > 60; Glucose 132 mg/dL (65-110); Potassium 4.1 mmol/L (3.4-5.0); Sodium 140 mmol/L (137-145)
== END 2021-09-26 11:24 | disposition home or self-care (01) ==
LOC: ANHLAB 11:25
PROVIDERS: PCP Family Medicine; Visit Provider Nurse Practitioner Family
DX: M79.89 Other specified soft tissue disorders (principal); N28.9 Disorder of kidney and ureter, unspecified
CPT/HCPCS: 36415; 80048

== ENCOUNTER 2021-10-18 11:41 | Outpatient (CLI) | payer MEDICARE, SELFPAY ==
[2021-10-18 13:03] LABS: Hemoglobin A1C 5.6 % (<5.7)
== END 2021-10-18 11:42 | disposition home or self-care (01) ==
LOC: ANHLAB 11:43
PROVIDERS: PCP Family Medicine; Visit Provider Nurse Practitioner Family
DX: R73.09 Other abnormal glucose (principal)
CPT/HCPCS: 36415; 83036

== ENCOUNTER 2021-11-27 15:20 | Outpatient (CLI) | payer MEDICARE, SELFPAY ==
--- NOTE | ~2021-11-27 | MR_ITS ---
EXAMINATION: MR brain/brain stem wo con DATE: 11/27/2021 16:09 INDICATION: Headaches TECHNIQUE: Magnetic resonance imaging (MRI) of the brain and brainstem was performed without intraven ous contrast. Sequences included sagittal and axial T1-weighted SE, axial diffusion-weighted FS SE, a xial T2*-weighted GRE, axial 3D SWAN, axial T2-weighted FLAIR, and axial T2-weighted FSE. Apparent di ffusion coefficient (ADC) maps were created. COMPARISON: Head CT dated 02/26/2021 and brain MR dated FINDINGS: There are no areas of restricted diffusion to suggest acute infarction. No intracranial hemorrhage or abnormal intracranial mass lesion. There are scattered areas of nonspecific increased T2-weighted si gnal intensity in the cerebral white matter, predominantly involving the deep and periventricular whi te matter. There are no intraparenchymal signal abnormalities seen on the other pulse sequences. The ventricles are symmetric and normal in size. There are no abnormal extra-axial fluid collections. Saleem w voids are seen in the cerebral arteries on the T2-weighted sequences consistent with their expected patency. Changes of bilateral intraocular lens replacement. Mild mucosal thickening the bilateral et hmoid sinuses and small mucous retention cysts in the bilateral maxillary sinuses. Visualized orbits and soft tissues are unremarkable. IMPRESSION: 1. No acute intracranial process. 2. Age-appropriate mild scattered nonspecific white matter T2 hyperintensity which is within normal l imits for age and likely sequela of chronic small vessel ischemic disease. Reviewed, dictated and finalized at location A. IMPRESSION: 1. No acute intracranial process. 2. Age-appropriate mild scattered nonspecific white matter T2 hyperintensity wh ich is within normal limits for age and likely sequela of chronic small vessel ischemic disease.
== END 2021-11-27 15:21 | disposition home or self-care (01) ==
LOC: ANHIMG 15:24
PROVIDERS: PCP Family Medicine; Visit Provider Nurse Practitioner Family
DX: G43.009 Migraine without aura, not intractable, without status migrainosus (principal)
CPT/HCPCS: 70551

== ENCOUNTER 2022-05-10 09:43 | Outpatient (CLI) | payer MEDICARE, SELFPAY ==
[2022-05-10 10:44] LABS: Alanine Aminotransferase 19 U/L (6-35); Alkaline Phosphatase 104 U/L (38-126); Anion Gap 4 mmol/L (8-16); Aspartate Amino Transferase 29 U/L (14-36); Bilirubin,Total 0.8 mg/dL (0.2-1.3); Blood Urea Nitrogen 13 mg/dL (7-17); Carbon Dioxide 29 mmol/L (22-30); Chloride 109 mmol/L (98-107); Estimated Glomerular Filt Rate 54; Glucose 108 mg/dL (65-110); Potassium 4.1 mmol/L (3.4-5.0); Sodium 142 mmol/L (137-145)
[2022-05-10 10:48] LABS: Eosinophils Absolute Auto 0.3 K/mm3 (0-0.3); Eosinophils Percent Auto 7.4 % (0-4.4); Hematocrit 37.4 % (37.0-47.0); Hemoglobin 11.4 g/dL (12.0-15.0); Immature Granulocyte Absolute 0.02 K/mm3 (0.00-0.031); Immature Granulocyte Percent A 0.5 % (0-0.5); Lymphocytes Absolute Auto 1.19 K/mm3 (0.9-3.2); Lymphocytes Percent Auto 29.2 % (18.3-44.2); Mean Corpuscular HGB Conc 30.5 g/dl (32-36); Mean Corpuscular Hemoglobin 28.6 pg (26-34); Mean Platelet Volume 11.3 fl (7.4-10.4); Monocytes Absolute Auto 0.6 K/mm3 (0.1-0.6); Neutrophils Percent Auto 47.9 % (45.5-73.1); Platelet Count Result 209 k/mm3 (150-375); Red Blood Count 3.98 M/mm3 (4.2-5.4); Red Cell Distribution Width 14.8 % (11.5-14.5); White Blood Count 4.1 K/mm3 (4.5-10.0)
[2022-05-15 06:17] LABS: Anti Nuclear Antibody Pattern Nuclear, Speckled; Anti Nuclear Antibody Titer 1:40 (Negative)
[2022-05-15 22:09] LABS: Methylmalonic Acid 174 nmol/L (87-318)
[2022-05-16 03:40] LABS: Homocysteine 12.1 umol/L (<10.4)
[2022-05-16 15:19] LABS: Vitamin B6 6.8 ng/mL (2.1-21.7)
[2022-05-18 10:12] LABS: Vitamin B1 16 nmol/L (8-30)
== END 2022-05-10 09:44 | disposition home or self-care (01) ==
PROVIDERS: PCP Family Medicine; Visit Provider Student in an Organized Health Care Education/Training Program
DX: R20.2 Paresthesia of skin (principal); R20.0 Anesthesia of skin
CPT/HCPCS: 36415; 80053; 82607; 82747; 83090; 83921; 84207; 84425; 84443; 85025; 86038; 86039; 86334; 86335

== ENCOUNTER 2023-01-02 10:01 | Outpatient (CLI) | payer MEDICARE, SELFPAY ==
--- NOTE | ~2023-01-02 | XR_ITS ---
Clinical Indication: Wheezing, asthma PA and lateral views of the chest: Comparison: 09/20/2020 Findings: Stable calcified right midlung granuloma. No acute consolidation or pleural effusion. Suspe cted COPD. Cardiomediastinal silhouette is within normal limits. Mild compression deformity of L1 no jd. Impression: COPD. Stable calcified right lung granuloma. Mild compression fracture of L1. Reviewed, dictated and finalized at location . Impression: COPD. Stable calcified right lung granuloma. Mild compression fracture of L1.
== END 2023-01-02 10:02 | disposition home or self-care (01) ==
LOC: ANHIMG 10:05
PROVIDERS: PCP Family Medicine; Visit Provider Physician Assistant Medical
DX: J44.9 Chronic obstructive pulmonary disease, unspecified (principal); J84.10 Pulmonary fibrosis, unspecified; M48.56XA Collapsed vertebra, not elsewhere classified, lumbar region, initial encounter for fracture
CPT/HCPCS: 71046

== ENCOUNTER 2023-01-14 12:38 | Outpatient (CLI) | payer MEDICARE, SELFPAY ==
--- NOTE | ~2023-01-14 | US_ITS ---
EXAMINATION: US venous doppler [facility] DATE: 01/14/2023 13:53 INDICATION: Other specified soft tissue disorders. TECHNIQUE: Grayscale ultrasound images without and with compression and Doppler ultrasound images of the bilateral lower extremity veins were obtained. COMPARISON: None. FINDINGS: The visualized portions of right common femoral vein, profunda (deep) femoral vein, femoral vein, pop liteal vein, peroneal veins, posterior tibial veins, and greater saphenous vein outflow are patent. The visualized portions of left common femoral vein, profunda femoral vein, femoral vein, popliteal v ein, peroneal veins, posterior tibial veins, and greater saphenous vein outflow are patent. IMPRESSION: 1. No deep venous thrombosis. Reviewed, dictated and finalized at location A.
== END 2023-01-14 12:39 | disposition home or self-care (01) ==
LOC: ANHIMG 12:39
PROVIDERS: PCP Family Medicine; Visit Provider Nurse Practitioner Family
DX: M79.89 Other specified soft tissue disorders (principal)
CPT/HCPCS: 93970

== ENCOUNTER 2023-01-22 12:33 | Outpatient (CLI) | payer MEDICARE, SELFPAY ==
--- NOTE | 2023-01-22 14:30 | NEURO_ITS ---
Impression: # Complains of numbness of hands. # Normal Nerve Conduction Study, not enough to make the diagnosis of Carpal Tunnel Syndrome. # No ulnar neuropathy. # Normal needle/EMG exam. Nerve Conduction Studies Anti Sensory Summary Table Stim Site NR Peak (ms) P-T Amp (?V) Site1 Site2 Delta-P (ms) Dist (cm) [place] (m/s) Left Median Anti Sensory (2-3nd Digit) Wrist 3.2 43.0 Wrist 2-3nd Digit 3.2 14.0 44 Wrist 3.3 35.1 Wrist 2-3nd Digit 3.2 14.0 44 Right Median Anti Sensory (2-3nd Digit) Wrist 3.5 21.0 Wrist 2-3nd Digit 3.5 14.0 40 Wrist 3.4 23.2 Wrist 2-3nd Digit 3.5 14.0 40 Left Radial Anti Sensory (Base 1st Digit) Wrist 2.2 12.1 Wrist Base 1st Digit 2.2 0.0 Right Radial Anti Sensory (Base 1st Digit) Wrist 2.8 10.1 Wrist Base 1st Digit 2.8 0.0 Left Ulnar Anti Sensory (5th Digit) Wrist 2.9 36.1 Wrist 5th Digit 2.9 14.0 48 Right Ulnar Anti Sensory (5th Digit) Wrist 2.8 61.3 Wrist 5th Digit 2.8 14.0 50 Motor Summary Table Stim Site NR Onset (ms) O-P Amp (mV) Site1 Site2 Delta-0 (ms) Dist (cm) [place] (m/s) Left Median Motor (Abd Poll Brev) Wrist 3.0 2.3 Elbow Wrist 6.0 31.0 52 Elbow 9.0 4.3 Right Median Motor (Abd Poll Brev) Wrist 3.8 4.2 Elbow Wrist 5.6 28.0 50 Elbow 9.4 3.5 Left Ulnar Motor (Abd Dig Minimi) Wrist 2.7 5.6 A Elbow Wrist 5.7 31.0 54 A Elbow 8.4 4.5 Right Ulnar Motor (Abd Dig Minimi) Wrist 2.8 7.3 A Elbow Wrist 5.5 29.0 53 A Elbow 8.3 5.9 F Wave Studies NR F-Lat (ms) L-R F-Lat (ms) Left Median (Mrkrs) (Abd Poll Brev) 30.58 0.00 Right Median (Mrkrs) (Abd Poll Brev) 30.59 0.00 Left Ulnar (Mrkrs) (Abd Dig Min) 29.32 0.06 Right Ulnar (Mrkrs) (Abd Dig Min) 29.38 0.06 EMG Side Muscle Nerve Root Ins Act Fibs Amp Dur Recrt Comment Right 1stDorInt Ulnar C8-T1 Nml Nml Nml Nml Nml Right Ext Indicis Radial (Post Int) C7-8 Nml Nml Nml Nml Nml Right Ext Digitorum Radial (Post Int) C7-8 Nml Nml Nml Nml Nml Right BrachioRad Radial C5-6 Nml Nml Nml Nml Nml Right PronatorTeres Median C6-7 Nml Nml Nml Nml Nml Right Abd Poll Brev Median C8-T1 Nml Nml Nml Nml Nml Left 1stDorInt Ulnar C8-T1 Nml Nml Nml Nml Nml Left Ext Indicis Radial (Post Int) C7-8 Nml Nml Nml Nml Nml Left Ext Digitorum Radial (Post Int) C7-8 Nml Nml Nml Nml Nml Left BrachioRad Radial C5-6 Nml Nml Nml Nml Nml Left PronatorTeres Median C6-7 Nml Nml Nml Nml Nml Left Abd Poll Brev Median C8-T1 Nml Nml Nml Nml Nml MTDD
== END 2023-01-22 12:34 | disposition home or self-care (01) ==
PROVIDERS: PCP Family Medicine; Visit Provider Student in an Organized Health Care Education/Training Program
DX: G56.02 Carpal tunnel syndrome, left upper limb (principal)
CPT/HCPCS: 95886; 95911

== ENCOUNTER 2023-01-27 13:22 | Outpatient (CLI) | payer MEDICARE, SELFPAY ==
--- NOTE | ~2023-01-27 | XR_ITS ---
AP view of the pelvis and AP and lateral views of the right hip Clinical history: Pain Findings: No acute fracture or dislocation is seen. Osseous alignment is anatomic. Bilateral hip and SI joint spaces are preserved. Soft tissues are unremarkable. Impression: No significant abnormality is seen. Reviewed, dictated and finalized at [facility]. Impression: No significant abnormality is seen.
--- NOTE | ~2023-01-27 | XR_ITS ---
XR lumbar spine 6V w bending 01/27/2023 14:09 Indication: Anesthesia of the skin. Right lower extremity pain. Procedure: 6 views of the lumbar spine Comparison: No prior studies for comparison. Findings: There is mild superior endplate compression fractures of T12 and L1, age indeterminate. The re is disc narrowing at L3-4, L4-5 and L5-S1. There is lower lumbar facet hypertrophy. Osteopenia. Th ere is atherosclerosis. There is scoliosis. There are cholecystectomy clips. Sacral foramen are symme tric. Impression: 1: Mild age-indeterminate superior endplate compression fractures of T12 and L1. 2: Mild-moderate lumbar spondylosis with scoliosis. Reviewed, dictated and finalized at location L. Impression: 1: Mild age-indeterminate superior endplate compression fractures of T12 and L1 . 2: Mild-moderate lumbar spondylosis with scoliosis.
== END 2023-01-27 13:23 | disposition home or self-care (01) ==
PROVIDERS: PCP Family Medicine; Visit Provider Family Medicine
DX: M48.55XA Collapsed vertebra, not elsewhere classified, thoracolumbar region, initial encounter for fracture (principal); M43.06 Spondylolysis, lumbar region; M41.9 Scoliosis, unspecified; G62.9 Polyneuropathy, unspecified; M54.9 Dorsalgia, unspecified; R20.0 Anesthesia of skin; R20.2 Paresthesia of skin
CPT/HCPCS: 72114; 73502; 73564

== ENCOUNTER 2023-01-31 14:13 | Outpatient (CLI) | payer MEDICARE, SELFPAY ==
[2023-01-31 15:10] LABS: Basophils Percent Auto 0.6 % (0.2-1.2); Eosinophils Absolute Auto 0.3 K/mm3 (0-0.3); Eosinophils Percent Auto 8.3 % (0-4.4); Hematocrit 32.8 % (37.0-47.0); Hemoglobin 9.7 g/dL (12.0-15.0); Immature Granulocyte Absolute 0.01 K/mm3 (0.00-0.031); Immature Granulocyte Percent A 0.3 % (0-0.5); Lymphocytes Absolute Auto 1.14 K/mm3 (0.9-3.2); Lymphocytes Percent Auto 31.7 % (18.3-44.2); Mean Corpuscular HGB Conc 29.6 g/dl (32-36); Mean Corpuscular Hemoglobin 25.6 pg (26-34); Mean Corpuscular Volume 86.5 fl (80-100); Mean Platelet Volume 11.3 fl (7.4-10.4); Monocytes Absolute Auto 0.5 K/mm3 (0.1-0.6); Monocytes Percent Auto 14.4 % (2.6-8.5); Neutrophils Absolute Auto 1.6 K/mm3 (1.3-6.7); Neutrophils Percent Auto 44.7 % (45.5-73.1); Platelet Count Result 230 k/mm3 (150-375); Red Blood Count 3.79 M/mm3 (4.2-5.4); Red Cell Distribution Width 18.5 % (11.5-14.5); White Blood Count 3.6 K/mm3 (4.5-10.0)
[2023-01-31 16:23] LABS: Alanine Aminotransferase 17 U/L (6-35); Albumin Level 4.4 g/dL (3.5-5.1); Alkaline Phosphatase 100 U/L (38-126); Anion Gap 10 mmol/L (8-16); Aspartate Amino Transferase 26 U/L (14-36); Bilirubin,Total 0.6 mg/dL (0.2-1.3); Blood Urea Nitrogen 15 mg/dL (7-17); Calcium 9.4 mg/dL (8.4-10.2); Carbon Dioxide 22 mmol/L (22-30); Chloride 110 mmol/L (98-107); Estimated Glomerular Filt Rate > 60; Glucose 95 mg/dL (65-110); Potassium 3.3 mmol/L (3.4-5.0); Sodium 142 mmol/L (137-145)
[2023-02-02 21:21] LABS: Arsenic, Blood <3 mcg/L (<23); Lead, Blood <1.0 mcg/dL (<3.5); Mercury, Blood <4 mcg/L (<=10)
[2023-02-04 07:15] LABS: Red Blood Cell Folate 585 ng/mL RBC (>280)
[2023-02-04 09:13] LABS: SS-A <1.0; SS-B <1.0
[2023-02-04 11:00] LABS: Vitamin B6 3.4 ng/mL (2.1-21.7)
[2023-02-14 12:43] LABS: Collection Sample Blood
== END 2023-01-31 14:14 | disposition home or self-care (01) ==
PROVIDERS: PCP Family Medicine; Visit Provider Student in an Organized Health Care Education/Training Program
DX: G62.9 Polyneuropathy, unspecified (principal); G56.00 Carpal tunnel syndrome, unspecified upper limb
CPT/HCPCS: 36415; 80053; 82175; 82607; 82747; 83655; 83825; 84207; 84443; 85025; 86038; 86235; 86334; 86335

== ENCOUNTER 2023-04-28 12:56 | Emergency (ER) | payer MEDICARE, SELFPAY ==
--- NOTE | ~2023-04-28 | CT_ITS ---
EXAMINATION: CT abdomen pelvis w con DATE: 04/28/2023 15:50 INDICATION: Left-sided costovertebral angle tenderness. TECHNIQUE: Computed tomography (CT) of the abdomen and pelvis was performed with 100 mL Omnipaque 350 intravenous contrast. Automated exposure control and iterative reconstruction technique were employe d. The dose-length product was 437.42 mGy-cm. COMPARISON: CT abdomen and pelvis 01/08/2017 FINDINGS: The visualized portions of the lung bases demonstrate calcified right lung nodules, consist ent with old granulomatous disease. There is mild atelectasis bilaterally. No pleural effusion. The h eart size is normal. No pericardial effusion. There is a 7 mm cyst in the liver. There are changes of cholecystectomy. Calcifications in the spleen are consistent with old granulomatous disease. The jennings creas, adrenal glands, and kidneys are normal. There is diverticulosis of the colon without evidence of diverticulitis. There are no dilated loops of bowel. The appendix is not visualized. There is calc ified atherosclerosis of the aorta and many of the other arteries. There are no pathologically enlarg ed lymph nodes. There is no free intraperitoneal fluid. There is moderate lumbar spondylosis. There i s a chronic compression fracture of L1. IMPRESSION: 1. No etiology for the patient's symptoms. Reviewed, dictated and finalized at location E. [facility]
[2023-04-28 13:10] VITALS: BP 122/66; PULSE 117; RESP 16; TEMP 37.3; O2SAT 99
[2023-04-28 13:28] LABS: Basophils Percent Auto 0.2 % (0.2-1.2); Eosinophils Absolute Auto 0.1 K/mm3 (0-0.3); Hematocrit 32.4 % (37.0-47.0); Hemoglobin 9.7 g/dL (12.0-15.0); Immature Granulocyte Absolute 0.03 K/mm3 (0.00-0.031); Immature Granulocyte Percent A 0.5 % (0-0.5); Lymphocytes Absolute Auto 0.27 K/mm3 (0.9-3.2); Lymphocytes Percent Auto 4.7 % (18.3-44.2); Mean Corpuscular HGB Conc 29.9 g/dl (32-36); Mean Corpuscular Hemoglobin 26.1 pg (26-34); Mean Corpuscular Volume 87.1 fl (80-100); Mean Platelet Volume 10.5 fl (7.4-10.4); Monocytes Absolute Auto 0.5 K/mm3 (0.1-0.6); Neutrophils Absolute Auto 4.9 K/mm3 (1.3-6.7); Neutrophils Percent Auto 84.6 % (45.5-73.1); Platelet Count Result 143 k/mm3 (150-375); Red Blood Count 3.72 M/mm3 (4.2-5.4); Red Cell Distribution Width 18.1 % (11.5-14.5); White Blood Count 5.8 K/mm3 (4.5-10.0)
[2023-04-28 13:39] LABS: Alanine Aminotransferase 16 U/L (6-35); Albumin Level 3.8 g/dL (3.5-5.1); Alkaline Phosphatase 93 U/L (38-126); Anion Gap 9 mmol/L (8-16); Aspartate Amino Transferase 26 U/L (14-36); Blood Urea Nitrogen 8 mg/dL (7-17); Carbon Dioxide 21 mmol/L (22-30); Chloride 111 mmol/L (98-107); Estimated CRCL calculation 44 ml/min; Estimated Glomerular Filt Rate > 60; Glucose 120 mg/dL (65-110); Lipase 111 U/L (23-300); Potassium 3.7 mmol/L (3.4-5.0); Sodium 141 mmol/L (137-145)
[2023-04-28 13:47] LABS: Anisocytosis 1+ (NORMAL); Hypochromasia 1+ (NORMAL); Ovalocytes 1+ (NORMAL); Platelet Estimate Adequate (Adequate)
[2023-04-28 13:48] LABS: Schistocytes Rare (NORMAL)
[2023-04-28 14:14] LABS: Appearance Urine Clear (Clear); Bilirubin Urine Negative (Negative); Blood Urine Negative (Negative); Color Urine Yellow (Yellow); Glucose Urine UA Negative (Negative); Ketones Urine Negative (Negative); Leukocyte Esterase Ur Negative LEU/UL (Negative); Nitrate Urine Negative (Negative); Protein Urine Negative (Negative); Specific Grav Ur 1.013 (1.001-1.035); Urobilinogen Urine 0.2 mg/dL (<2.0); pH Urine 7.5 (5.0-9.0)
[2023-04-28 14:25] LABS: Add Urine Microscopic? NO
[2023-04-28 14:54] VITALS: BP 139/73; PULSE 102; RESP 22; O2SAT 98
[2023-04-28 15:01] VITALS: BP 142/68; PULSE 95; RESP 17; O2SAT 99
--- NOTE | 2023-04-28 15:31 | ED.GENADULT ---
HPI - General Adult General Chief complaint: Nausea/Vomiting/Diarrhea Stated complaint: n/v since 05 Time Seen by Provider: 04/28/23 14:53 History of Present Illness HPI narrative: 77 presenting to the emergency department for evaluation dysuria and left CVA tenderness to palpation. Patient was recently treated for urinary tract infection and states he is still having persistent symptoms. Related Data Allergies Allergy/AdvReac Type Severity Reaction Status Date / Time vancomycin Allergy Mild Rash Verified 01/27/23 12:40 Review of Systems Review of Systems: All systems reviewed & are unremarkable except as noted in HPI and below PMFSH Past Medical History Medical History BMI 27.0-27.9,adult Bronchitis Cough present for greater than 3 weeks Essential hypertension Major depressive disorder, single episode, unspecified Other specified symptoms and signs involving the circulatory and respiratory systems Pain in right toe(s) Right hip pain Right knee pain Seasonal allergies Shortness of breath Family History Family History Father Cancer H/O cirrhosis Mother Acute myocardial infarction Sibling Cancer Sibling Cancer Tobacco abuse Social History Social History Smoking status: Former smoker Tobacco type: cigarettes Second hand tobacco smoke exposure: Yes Smoking end date: 04/07/1966 Alcohol intake: former Substance use: never Substance use type: does not use Lack of Transportation: No Lack of Food: Never True Current Housing: I Have Housing Concerned About Future Housing: No Difficulty Paying Gas/Electric Bills: No Difficulty Paying for Meds: No Currently Unemployed: No Education: High School Diploma/GED Difficulty w/ Childcare or Family Care: No Living arrangements: with family Occupation/Education: retired Additional occupation/education comments: [employer] Gender identity (if verbalized by the patient): Female Exam Narrative: APPEARANCE: Well appearing, no pain, no distress, well-nourished. HEAD: normocephalic, atraumatic. EYES: PERRLA/EOMI, conjunctivae clear. NOSE: Normal no drainage EARS:TMS clear with good light reflex. THROAT: Pharynx clear, no exudate. NECK: Supple. No adenopathy, no masses. RESPIRATORY: Airway patent, respirations nonlabored. Clear to auscultation bilaterally, no rales, rhonchi, wheezing. CARDIOVASCULAR: Regular rate and rhythm without murmurs rubs or gallops. ABDOMINAL: Soft, nontender, nondistended, normal bowel sounds MUSCULOSKELETAL: Moves all extremities. Strength/ROM intact, No edema, No calf tenderness. NEURO: Alert. Cranial nerves II through XII intact. Grossly intact SKIN: Warm, dry. Normal Color Course Course Emergency Course: 77-year-old female presenting emergency department evaluation left flank pain. Patient is afebrile with no leukocytosis and a stable hemoglobin. No significant abnormalities on her CMP UA shows no evidence of infection and patient was negative and influenza RSV and COVID. The patient's CT scan show it now etiology for patient's symptoms. Patient and family were updated on the results of the workup and they were comfortable the plan with discharge and close follow-up Vital Signs Vital signs: Vital Signs Temperature 99.1 F 04/28/23 13:10 Pulse Rate 117 H 04/28/23 13:10 Respiratory Rate 16 04/28/23 13:10 Blood Pressure 122/66 04/28/23 13:10 Pulse Oximetry 99 04/28/23 13:10 Oxygen Delivery Room Air 04/28/23 13:10 Temperature 99.1 F 04/28/23 13:10 Pulse Rate 98 04/28/23 16:05 Respiratory Rate 19 04/28/23 16:05 Blood Pressure 134/68 04/28/23 16:05 Pulse Oximetry 99 04/28/23 16:05 Oxygen Delivery Room Air 04/28/23 14:54 Me
[2023-04-28 16:05] VITALS: BP 134/68; PULSE 98; RESP 19; O2SAT 99
[2023-04-28 16:35] LABS: Influenza A QL RT-PCR Negative (Negative); Influenza B QL RT-PCR Negative (Negative); RSV RNA, RT-PCR Negative (Negative); SARS-CoV-2 RNA PCR Negative (Negative)
== END 2023-04-28 18:24 | disposition home or self-care (01) ==
PROVIDERS: Emergency Provider Emergency Medicine; PCP Family Medicine
DX: R10.9 Unspecified abdominal pain (principal); I10 Essential (primary) hypertension; F32.9 Major depressive disorder, single episode, unspecified; Z87.891 Personal history of nicotine dependence; Z20.822 Contact with and (suspected) exposure to COVID-19
CPT/HCPCS: 36415; 74177; 80053; 81003; 83690; 85025; 87637; 99284; Q9967

== ENCOUNTER 2024-01-26 10:24 | Outpatient (CLI) | payer MEDICARE, SELFPAY | END 2024-01-26 10:25 | disposition home or self-care (01) | PROVIDERS: PCP Family Medicine; Visit Provider Family Medicine | DX: M25.561 Pain in right knee (principal) | CPT/HCPCS: 73562 ==

== ENCOUNTER 2024-10-14 08:56 | Outpatient (CLI) | payer MEDICARE, SELFPAY ==
--- OUTSIDE RECORDS SUMMARY | 2024-10-14 09:03 | XMS_ITS | Clinical Summary ---
Author Organization [facility] Address [address] [place] [address] Care Team Providers Care Small Engine Trainer Name Role Phone Verónica Calle Primary Care Provider Allergies Active Allergy Reactions Criticality Noted Date Comments Alteplase Angioedema High 07/25/2023 During 07/2023 admission Erythromycin Rash Medium 02/02/2024 Medications atorvastatin (LIPITOR) 80 mg tablet Take 1 tablet (80 mg total) by mouth nightly 30 tablet 11 4 Active ondansetron ODT (ZOFRAN-ODT) 4 mg disintegrating tablet Take 1 tablet (4 mg total) by mouth every 4 (four) hours as needed for nausea or vomiting (use before IV) 4 Active escitalopram (LEXAPRO) 20 mg tablet Take 1 tablet (20 mg total) by mouth daily 4 Active cyanocobalamin (Vitamin B-12) 1,000 mcg tablet Take 1 tablet (1,000 mcg total) by mouth daily 4 Active acetaminophen 500 mg capsule Take 2 capsules (1,000 mg total) by mouth nightly 4 Active acetaminophen 500 mg capsule Take 2 capsules (1,000 mg total) by mouth 2 (two) times a day as needed for pain 4 Active apixaban (ELIQUIS) 5 mg tabletIndications: Venous Thrombosis Take 1 tablet (5 mg total) by mouth every 12 (twelve) hours 4 Active benzocaine-menthoL (CHLORASEPTIC) 6-10 mg lozenge Take 1 lozenge by mouth every 2 (two) hours as needed for sore throat 4 Active lidocaine (ASPERCREME) 4 % adhesive patch,medicated Place 1 patch on the skin daily for 1 dose 4 Active phenoL (CHLORASEPTIC) 1.4 % aerosol,spray Apply 1 mL (1 spray total) to the mouth or throat every 2 (two) hours as needed (sore throat) 4 Active polyethylene glycol (MIRALAX) 17 gram packetIndications: constipation Administer 1 packet (17 g total) per feeding tube 2 (two) times a day 4 Active Klor-Con M20 20 mEq CR tablet Take 1 tablet (20 mEq total) by mouth daily 4 Active albuterol HFA (PROVENTIL HFA,VENTOLIN HFA,PROAIR HFA) 90 mcg/actuation inhaler INHALE ONE PUFF EVERY 4 HOURS NEEDED FOR WHEEZING 4 Active metoprolol tartrate (LOPRESSOR) 25 mg immediate release tablet Take 1 tablet (25 mg total) by mouth 2 (two) times a day 4 Active omeprazole (PriLOSEC) 20 mg capsule Take 1 capsule (20 mg total) by mouth daily 4 Active budesonide-formote roL (SYMBICORT) 160-4.5 mcg/actuation inhaler Inhale 2 puffs 2 (two) times a day Rinse mouth with water after use. Do not swallow. 10.2 g 11 5 Active Active Problems Problem Noted Date Diagnosed Date Volume depletion 07/31/2023 Assessment & Plan (07/31/2023 6:00 PM CDT): Patient has markedly elevated BUN/Cr level = 20 / 0.64 with climbing BUN since 07/25. Will gently hydrate overnight as she has an IV. Acute right-sided low back pain without sciatica 07/30/2023 Assessment & Plan (08/01/2023 11:11 AM CDT): 07/31: Reduced back pain this morning. 07/30: Appreciate PM&R consultation. - will stop oxycodone and adjust acetaminophen dosing to 1g qhs and then bid prn. 07/29: As patient becoming more mobile, began to complain of R lower back pain. On exam has muscle tenderness over R lumbar paraspinal muscles. - Rx heat packs and lidocaine patch. Fever 07/30/2023 Assessment & Plan (08/01/2023 11:13 AM CDT): 07/29: T-38.1 (100.6) new this evening. - no specific symptoms. - will check UA - Blood cultures given history of Staph hominis bacteremia. - consider CXR if any cough or dyspnea. 07/30: No further fever UA: negative Blood Culture pending Will check CXR given issues with dysphagia so assessed prior to transfer to [facility] 07/31: No growth to date. No fever Dysphagia 07/27/2023 Assessment & Plan (08/01/2023 11:10 AM CDT): Due to critical illness - continue speech therapy - continue NJ and tube feeds; sugars have been fine without insulin 07/30: NG tube feeds (at goal rate 40ml/hr) held today to assess ability to increase p.o. intake and this was successful. Will resume tonight and then [facility] can adjust accordingly after her transfer tomorrow. 07/28: Modified Barium Swallow: extremely sensate to penetration/aspiration (good) Consistent penetration to the cords with nectar but patient ejects. Gross amount of penetration with honey-thickened. Purees and solids with no laryngeal penetration. Recommend: Puree and nectar liquids for diet order. Dysphagia Outcome and Severity Scale: 3 Moderate dysphagia 07/29: Will start calorie count to see if she can be moved off tube feeds. 07/30: Able to increase p.o. intake of food after tube feeds held. Will restart this evening at 9p. 07/31: tolerated tube feeds during the night. 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 Tachycardia seen after prolonged critical illness, and possibly residual contribution of pulmonary hypertension from PE. 07/29: Attempting PT/OT as much as the patient tolerates. Awaiting PM&R Consult assessment - able to ambulate with assistance; up in chair 07/30: Speech therapy recommended increase diet to mechanical soft from pureed and continue nectar thickened liquids. She states that eating causes her to be nauseated. Tolerating tube feeds but need to move off these to optimize rehab post-hospitalization. Tube feeds held today and she increased her p.o. intake. Will restart overnight. 07/31: Tolerated Tube feeds overnight and given IV fluids (one liter) for elevated BUN/Cr. Encouraged her to increase her p.o. fluid intake. Ready for transfer to [facility]. PMR Consultation 07/30 Current functional status represents a significant decline from baseline and necessitates intensive skilled therapies in a setting with close medical oversight of current dehydration and tachycardia amidst recent PE causing cardiac arrest and heart failure, with daily monitoring of swallow status toward liberalization of diet to improve dehydration and close caloric intake monitoring. This level of medical monitoring and intensive PT, OT, and speech therapy necessitates transfer to inpatient rehabilitation program and will not be adequately provided at residential facility or other post-acute level of care. Health Screener successfully appealed denial from insurance company, and patient will go to [facility] tomorrow. Cardiac arrest 07/24/2023 Assessment & Plan (07/24/2023 8:28 PM CDT): RESOLVED. Patient transferred from OSH after cardiac arrest x2 in the CT scanner where she was found to have bilateral PEs w/ right heart strain. EKG w/ TWI in anterior leads and no other obvious ischemic changes. Required pressors in the ICU for cardiogenic shock with SHIREEN, lactic acidosis and transaminitis. S/p s/p stress dose steroids and dexamethasone - 07/10 TTE: Small LV cavity c/w reduced preload, mild LVH, mild to moderate global hypokinesis, LVEF 40-45%, and impaired LV relaxation. Normal RV sizewith free wall hypokinesis, possible Freeman's sign and relatively short PV acceleration time c/w clinical diagnosis of PE, overall mildly reduced RV function. No pericardial effusion - 07/14 Limited f/u TTE with normal RV size and function, EF 59%, small pericardial effusion. - now hemodynamically stable Staphylococcus hominis sepsis 07/24/2023 Assessment & Plan (07/30/2023 9:18 PM CDT): 07/18: Febrile. BCx / Staph Hominis positive. 07/19 BCx NGTD. - linezolid (07/17-07/20), Was on ceftaroline (07/20-) for 7 day course and after conversation with ID stewardship switched to linezolid bid to complete course, last day 07/26 Bicytopenia 07/24/2023 Assessment & Plan (08/01/2023 11:11 AM CDT): Anemia and thrombocytopenia (resolved / HIT + but RADHA -ve). Likely due to critical illness - iron 14, TSat 8, hapto 201, LDH 450, ferritin 173, retic count 4.8%. Stable Hb Hemoglobin Trend Recent Labs Lab Units 07/31/23 2233 07/30/23 2046 07/28/23 2255 07/26/23 2128 07/25/23 2107 HEMOGLOBIN g/dL 8.6* 9.4* 9.5* 8.4* 9.1* Pneumothorax, left 07/24/2023 Assessment & Plan (07/24/2023 8:26 PM CDT): RESOLVED. Left pneumothorax after L subclavian placement on 07/10. Chest tube placed with re-expansion of lung seen on imaging. Chest tube removed 07/13. Acute hypoxic respiratory failure 07/24/2023 Assessment & Plan (07/31/2023 5:43 PM CDT): RESOLVED. Due to cardiac arrest from bilateral PE. extubated 07/12. Post extubation angioedema of tongue deemed 2/2 tPA. 07/15 bit down on front and sides of tongue with worsening swelling, bleeding requiring nasal intubation for airway protection. ENT was consulted and removed tip of her tongue that had been bit off. s/p dexamethasone 24h with significant improvement. Extubated 07/22. - now on room air - S/p cefe (07/09-07/12), (07/17-07/20), vanc (07/09-07/10), linezolid (07/17-07/20), Now on ceftaroline for staph hominis bacteremia as elsewhere - seen by speech pathology diagnosed with moderate dysphagia. They will continue to follow. remains on NG tube feeds (at goal rate 40ml/hr) 07/30: Patient previously on trelegy and noted to have wheezes on exam by PM&R physician. Restarted. Mood disorder 07/24/2023 Assessment & Plan (07/24/2023 9:00 PM CDT): Unclear Hx. Per dispense report, on buspirone and escitalopram. - ICU team restarted celexa Other pulmonary embolism wit h acute cor pulmonale, unspecified chronicity 07/10/2023 Assessment & Plan (07/31/2023 5:38 PM CDT): 07/10: Presented with pulmonary emboli with cardiac arrest and cardiogenic shock. - PERT team deemed not candidate for ECMO or thrombectomy and recommended medical management. - Rx'd 1/2 dose lytics (alteplase 50mg) in the ED after discussion with family - s/p epoprostenol 07/10: Duplex US LEs: Chronic deep vein thrombosis in the RLE. Deep veins involved include the right femoral vein, popliteal vein, posterior tibial veins and peroneal veins. No DVT LLE.. 07/21: Duplex US UEs: Acute deep vein thrombosis in the LUE. Superficial vein thrombus in the LUE. No evidence of acute deep vein thrombosis in the RUE. Superficial vein thrombus in the RUE. 07/13 ECHO LA is normal. Normal RV cavity size and function. LV cavity size is normal. Concentric LV remodeling and normal EF=59%. Normal Inferior vena cava. Small pericardial effusion. RV has normalized and EF has improved COLOR FOLOW DOPPLER: No AR seen, No MR seen, no , no MS, normal TV, normal PV. Diastolic function: Normal Rx - Lovenox 70 mg bid switched to apxiban 5mg bid this evening. Myocardial infarction Encounters Date Type Department Care Team Description 08/25/2024 Results Follow-Up [facility] at [address] [place] [address] Papo Merchant MD Allergen Rat mix (animal) IgE, Allergen Mouse mix (animal) IgE, Allergen Epithelia/dander dog (animal) IgE, Additional followed-up results: 24 08/09/2024 11:10 AM CDT Lab [address] Environmental allergies 08/09/2024 10:45 AM CDT Office Visit [facility] at [address] [place] [address] Papo Merchant MD Environmental allergies (Primary Dx); Acute pulmonary embolism with acute cor pulmonale, unspecified pulmonary embolism type (HCC); Moderate persistent asthma without complication from Last 3 Months Surgical History Surgery Date Site/Laterality Comments EYE SURGERY 04/07/2013 - 04/06/2014 Right Medical History Medical History Date Comments Allergies Anxiety Asthma Arthritis Migraine High blood pressure Osteoporosis Myocardial infarction (HCC) Family History Medical History Relation Name Comments Cancer Brother 1 Edward Aneurysm Brother 2 Nathan Hypertension Brother 2 Nathan Car Accident Brother 3 Itz Asthma Daughter Heart disease Mother Cancer Sister 1 Aisha Colon cancer Sister 1 Aisha Heart disease Sister 1 Aisha Cancer Sister 2 Debby Cancer Sister 3 Zo Colon cancer Sister 3 Zo Heart disease Sister 4 Hermila Melanoma Sister 5 Sepideh Cancer Sister 7 Danielle Relation Name Status Comments Brother 1 Edward Brother 2 Nathan Brother 3 Itz Brother 4 Sonny Daughter Alive Father Mother Sister 1 Aisha Sister 2 Debby Sister 3 Zo Sister 4 Hermila Sister 5 Sepideh Sister 6 Judy Sister 7 Danielle Social History Tobacco Use Types Packs/Day Years Used Date Smoking Tobacco: Former Cigarettes Passive Smoke Exposure: Current Smokeless Tobacco: Never Tobacco Cessation:Counseling Given: Not Answered Comments:Reports age 18 smoked x 1.5 year few cigarettes per day AUDIT-C Answer Date Recorded Q1: How often do you have a drink containing alc ohol? Never 04/06/2024 Average Number of Drinks Not on file 024 Frequency of Binge Drinking Not on file 03/09 Personal Safety Answer Date Recorded Have you ever been in or are you currently in a harmful physical or emotional relationship or is someone making you feel afraid or unsafe? 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 Gender Identity Not on file Sexual Orientation Not on file Obstetrics History Last Filed Vital Signs Vital Sign Reading Time Taken Comments Blood Pressure 139/84 08/09/2024 10:22 AM CDT Pulse 86 08/09/2024 10:22 AM CDT Temperature 36.2 C (97.2 F) 08/09/2024 10:22 AM CDT Respiratory Rate 18 08/09/2024 10:2 2 AM CDT Oxygen Saturation 96% 08/09/2024 10: 22 AM CDT Inhaled Oxygen Concentration - - Weight 76.1 kg (167 lb 11.2 oz) 025 10:22 AM CDT Height 162.6 cm (5' 4) 08/09/2024 10:2 2 AM CDT Body Mass Index 28.79 08/09/2024 10:22 AM CDT Plan of Treatment Health Maintenance Due Date Last Done Comments Depression Screening 1945 Hepatitis C Screening 1945 Osteoporosis Screening-Bone Density Scan 1945 Hepatitis B Screening 09/26/1963 Well Visit 65+ 2010 Zoster Vaccine (2 of 2) 01/08/2022 11/13/2021 Covid-19 Vaccine ( - season) 2023 01/30/2022, 11/01/2020, 10/03/2020 Fall Risk Assessment 07/31/2024 08/01/2023 Influenza Vaccine (#1) 2024 DTaP/Tdap/Td Vaccine (2 - Td or Tdap) 10/26/2031 Pneumococcal vaccine 65+ Completed 10/25/2021, 01/05 Procedures Procedure Name Priority Date/Time Associated Diagnosis Comments ALLERGEN BIRCH COMMON SILVER (TREE) IGE Routine 08/09/2024 11:11 AM CDT Environmental allergies ALLERGEN ELM (TREE) IGE Routine 08/10/19 11:11 AM CDT Environmental allergies ALLERGEN MAPLE/BOX ELDER (TREE) IGE Routine 08/09/2024 11:11 AM CDT Environmental allergies ALLERGEN MOUNTAIN JUNIPER (TREE) IGE Routine 08/09/2024 11:11 AM CDT Environmental allergies ALLERGEN MULBERRY (TREE) IGE Routine 08/09/2024 11:11 AM CDT Environmental allergies ALLERGEN OAK RED (TREE) IGE Routine 08/09/2024 11:11 AM CDT Environmental allergies ALLERGEN SYCAMORE ALBANIAN (TREE) IGE Routine 08/09/2024 11:11 AM CDT Environmental allergies ALLERGEN WALNUT (TREE) IGE Routine 08/09/2024 11:11 AM CDT Environmental allergies ALLERGEN BERMUDA GRASS (GRASS) IGE Routine 08/09/2024 11:11 AM CDT Environmental allergies ALLERGEN ALEXANDRU GRASS (GRASS) IGE Routine 08/09/2024 11:11 AM CDT Environmental allergies ALLERGEN GINO GRASS (GRASS) IGE Routine 08/09/2024 11:11 AM CDT Environmental allergies ALLERGEN PLANTAIN LATVIAN (WEED) IGE Routine 08/09/2024 11:11 AM CDT Environmental allergies ALLERGEN SANTORO'S QUARTER (WEED) IGE Routine 08/09/2024 11:11 AM CDT Environmental allergies ALLERGEN PIGWEED ROUGH (WEED) IGE Routine 08/09/2024 11:11 AM CDT Environmental allergies ALLERGEN RAGWEED SHORT/COMMON (WEED) IGE Routine 08/09/2024 11:11 AM CDT Environmental allergies ALLERGEN NETTLE (WEED) IGE Routine 08/09/2024 11:11 AM CDT Environmental allergies ALLERGEN ALTERNARIA TENUIS (MOLD) IGE Routine 08/09/2024 11:11 AM CDT Environmental allergies ALLERGEN ASPERGILLUS FUMIGATUS (MOLD) IGE Routine 08/09/2024 11:11 AM CDT Environmental allergies ALLERGEN CLADOSPORIUM HERBARUM (MOLD) IGE Routine 08/09/2024 11:11 AM CDT Environmental allergies ALLERGEN PENICILLIUM CHRYSOGENUM (MOLD) IGE Routine 08/09/2024 11:11 AM CDT Environmental allergies ALLERGEN EPITHELIA/DANDER CAT (ANIMAL) IGE Routine 08/09/2024 11:11 AM CDT Environmental allergies ALLERGEN COCKROACH ALBANIAN (INSECT) IGE Routine 08/09/2024 11:11 AM CDT Environmental allergies ALLERGEN DERMATOPHAGOIDES FARINAE (INSECT) IGE Routine 08/09/2024 11:11 AM CDT Environmental allergies ALLERGEN DERMATOPHAGOIDES PTERONYSSINUS (INSECT) IGE Routine 08/09/2024 11:11 AM CDT Environmental allergies ALLERGEN EPITHELIA/DANDER DOG (ANIMAL) IGE Routine 08/09/2024 11:11 AM CDT Environmental allergies ALLERGEN MOUSE MIX (ANIMAL) IGE Routine 08/09/2024 11:11 AM CDT Environmental allergies ALLERGEN RAT MIX (ANIMAL) IGE Routine 08/09/2024 11:11 AM CDT Environmental allergies from Last 3 Months Results * Allergen Rat mix (animal) IgE (08/09/2024 11:11 AM CDT) Rat mix IgE <0.10 0.00 - 0.34 kUnits/L Comment:Testing performed by : [facility], [address] [facility], [place]., [id number] Blood 08/09/2024 11:1 1 AM CDT 08/09/2024 6:50 PM CDT Papo Merchant MD LAB BLOOD ORDERABLES Final Resul t [facility] ([place]) [address] [facility] [place] [address] * Allergen Mouse mix (animal) IgE (08/09/2024 11:11 AM CDT) Mouse mix IgE <0.10 0.00 - 0.34 kUnits/L Comment:Testing performed by : [facility], [address] [place] [address]., [id number] Blood 08/09/2024 11:1 1 AM CDT 08/09/2024 6:50 PM CDT Papo Merchant MD LAB BLOOD ORDERABLES Final Resul t Performing Organization Address City/[facility]/ZIP Co de Phone Number [facility] ([place]) [address] [place] [address] [place] [address] * Allergen Penicillium chrysogenum (mold) IgE (08/09/2024 11:11 AM CDT) Penicillium chrysogenum IgE <0.10 0.00 - 0.34 kUnits/L Comment:Testing performed by : [facility], [address] [place] [address]., [id number] Blood 08/09/2024 11:1 1 AM CDT 08/09/2024 6:50 PM CDT Papo Merchant MD LAB BLOOD ORDERABLES Final Resul t [facility] ([place]) [address] [place] [address] [place] [address] * Allergen Conway (tree) IgE (08/09/2024 11:11 AM CDT) Conway IgE <0.10 0.00 - 0.34 kUnits/L Comment:Testing performed by : [facility], [address] [place]., [address] Blood 08/09/2024 11:1 1 AM CDT 08/09/2024 6:50 PM CDT Papo Merchant MD LAB BLOOD ORDERABLES Final Resul t [facility] ([place]) [address] [facility] [place] [address] * Allergen Mountain juniper (tree) IgE (08/09/2024 11:11 AM CDT) Mountain juniper IgE <0.10 0.00 - 0.34 kUnits/L Comment:Testing performed by : [facility], [address] [place] [address], [id number] Blood 08/09/2024 11:1 1 AM CDT 08/09/2024 6:50 PM CDT Papo Merchant MD LAB BLOOD ORDERABLES Final Resul t Performing Organization Address [facility] Co de Phone Number [facility] ([place]) [address] [place] [phone] * Allergen Bermuda grass (grass) IgE (08/09/2024 11:11 AM CDT) Bermuda grass IgE <0.10 0.00 - 0.34 kUnits/L Comment:Testing performed by : [facility], [address] [place] [address], [place]., [id number] Blood 08/09/2024 11:1 1 AM CDT 08/09/2024 6:50 PM CDT Papo Merchant MD LAB BLOOD ORDERABLES Final Resul t [facility] ([place]) [address] [facility] [place] [address] * Allergen Plantain yakut (weed) IgE (08/09/2024 11:11 AM CDT) Plantain yakut IgE <0.10 0.00 - 0.34 kUnits/L Comment:Testing performed by : [facility], [address] [place] [address]., [id number] Blood 08/09/2024 11:1 1 AM CDT 08/09/2024 6:50 PM CDT Papo Merchant MD LAB BLOOD ORDERABLES Final Resul t [facility] ([place]) [address] [place] [address] [place] [address] * Allergen Elm (tree) IgE (08/09/2024 11:11 AM CDT) Elm IgE <0.10 0.00 - 0.34 kUnits/L Comment:Testing performed by : [facility], [address] [place] [address], [place]., [address] Blood 08/09/2024 11:1 1 AM CDT 08/09/2024 6:50 PM CDT Papo Merchant MD LAB BLOOD ORDERABLES Final Resul t [facility] ([place]) [address] [place] [address] [place] [address] * Allergen Cladosporium herbarum (mold) IgE (08/09/2024 11:11 AM CDT) Cladosporium herbarum IgE <0.10 0.00 - 0.34 kUnits/L Comment:Testing performed by : [facility], [address] [place] [address], [place]., [address] Blood 08/09/2024 11:1 1 AM CDT 08/09/2024 6:50 PM CDT Papo Merchant MD LAB BLOOD ORDERABLES Final Resul t [facility] ([place]) [address] [place] [address] [place] [address] * Allergen Birch common silver (tree) IgE (08/09/2024 11:11 AM CDT) Birch common silver IgE <0.10 0.00 - 0.34 kUnits/L Comment:Testing performed by : [facility], [address] [place] [address], [id number] Blood 08/09/2024 11:1 1 AM CDT 08/09/2024 6:50 PM CDT Papo Merchant MD LAB BLOOD ORDERABLES Final Resul t Performing Organization Address [facility] Co de Phone Number [facility] ([place]) [address] [place] [phone] * Allergen Alternaria tenuis (mold) IgE (08/09/2024 11:11 AM CDT) Alternaria tenius IgE <0.10 0.00 - 0.34 kUnits/L Comment:Testing performed by : [facility], [address] [place] [address]., [id number] Blood 08/09/2024 11:1 1 AM CDT 08/09/2024 6:50 PM CDT Papo Merchant MD LAB BLOOD ORDERABLES Final Resul t [facility] ([place]) [address] [place] [address] [place] [address] * Allergen Aspergillus fumigatus (mold) IgE (08/09/2024 11:11 AM CDT) Aspergillus fumigatus IgE <0.10 0.00 - 0.34 kUnits/L Comment:Testing performed by : [facility] [address] [place] [address]., [id number] Blood 08/09/2024 11:1 1 AM CDT 08/09/2024 6:50 PM CDT Papo Merchant MD LAB BLOOD ORDERABLES Final Resul t Performing Organization Address City/[facility]/ZIP Co de Phone Number [facility] ([place]) [address] [place] [address] [place] [address] * Allergen Dermatophagoides pteronyssinus (insect) IgE (08/09/2024 11:11 AM CDT) Dermatophyton pteronyssinus IgE <0.10 0.00 - 0.34 kUnits/L Comment:Testing performed by : [facility], [address] [place] [address]., [id number] Blood 08/09/2024 11:1 1 AM CDT 08/09/2024 6:50 PM CDT Papo Merchant MD LAB BLOOD ORDERABLES Final Resul t Performing Organization Address [facility] Co de Phone Number [facility] ([place]) [address] [place] [address] [place] [address] * Allergen Dermatophagoides farniae (insect) IgE (08/09/2024 11:11 AM CDT) Dermatophyton farinae IgE <0.10 0.00 - 0.34 kUnits/L Comment:Testing performed by : [facility], [address] [place] [address], [place]., [address] Blood 08/09/2024 11:1 1 AM CDT 08/09/2024 6:50 PM CDT us Papo Merchant MD LAB BLOOD ORDERABLES Final Resul t [facility] ([place]) [address] [place] [address] * Allergen Epithelia/dander dog (animal) IgE (08/09/2024 11:11 AM CDT) Dog dander IgE <0.10 0.00 - 0.34 kUnits/L Comment:Testing performed by : [facility], [address] [place] [address]., [id number] Blood 08/09/2024 11:1 1 AM CDT 08/09/2024 6:50 PM CDT us Papo Merchant MD LAB BLOOD ORDERABLES Final Resul t [facility] ([place]) [address] [place] [address] * Allergen Cockroach armenian (insect) IgE (08/09/2024 11:11 AM CDT) Cockroach IgE <0.10 0.00 - 0.34 kUnits/L Comment:Testing performed by : [facility], [address] [place] [address]., [id number] Blood 08/09/2024 11:1 1 AM CDT 08/09/2024 6:50 PM CDT us Papo Merchant MD LAB BLOOD ORDERABLES Final Resul t [facility] ([place]) [address] [place] [address] * Allergen Epithelia/dander cat (animal) IgE (08/09/2024 11:11 AM CDT) Cat dander IgE 0.22 0.00 - 0.34 kUnits/L Comment:Testing performed by : [facility], [address] [place] [address], [place] [address] Blood 08/09/2024 11:1 1 AM CDT 08/09/2024 6:50 PM CDT us Papo Merchant MD LAB BLOOD ORDERABLES Final Resul t [facility] ([place]) [address] [place] [address] * Allergen Ragweed short/common (weed) IgE (08/09/2024 11:11 AM CDT) Ragweed common IgE <0.10 0.00 - 0.34 kUnits/L Comment:Testing performed by : [facility], [address] [place] [address]., [id number] Blood 08/09/2024 11:1 1 AM CDT 08/09/2024 6:50 PM CDT Papo Merchant MD LAB BLOOD ORDERABLES Final Resul t Performing Organization Address [facility] Co de Phone Number ARIA HIRSCH ([place]) [address] [place] [address] * Allergen Pigweed, rough (weed) IgE (08/09/2024 11:11 AM CDT) Pigweed rough IgE <0.10 0.00 - 0.34 kUnits/L Comment:Testing performed by : [facility], [address] [place] [address], [place]., [address] Blood 08/09/2024 11:1 1 AM CDT 08/09/2024 6:50 PM CDT us Papo Merchant MD LAB BLOOD ORDERABLES Final Resul t [facility]A [facility] ([place]) [address] [place] [address] * Allergen Nettle (weed) IgE (08/09/2024 11:11 AM CDT) Nettle IgE <0.10 0.00 - 0.34 kUnits/L Comment:Testing performed by : [facility], [address] [place] [address]., [id number] Blood 08/09/2024 11:1 1 AM CDT 08/09/2024 6:50 PM CDT Papo Merchant MD LAB BLOOD ORDERABLES Final Resul t Performing Organization Address City/[facility] Co de Phone Number CERNER [facility] ([place]) [address] [place] [address] * Allergen Santoro's quarter (weed) IgE (08/09/2024 11:11 AM CDT) Pathologist [facility] Santoro's quarters IgE <0.10 0.00 - 0.34 kUnits/L Comment:Testing performed by : [facility], [address] [place] [address], [address] Blood 08/09/2024 11:1 1 AM CDT 08/09/2024 6:50 PM CDT us Papo Merchant MD LAB BLOOD ORDERABLES Final Resul t Performing Organization Address [facility] de Phone Number [facility] ([place]) [address] [place] [address] [place] [address] * Allergen Gino grass (grass) IgE (08/09/2024 11:11 AM CDT) [facility] Gino grass IgE <0.10 0.00 - 0.34 kUnits/L Comment:Testing performed by : [facility], [address] [place] [address], [place]., [address] Blood 08/09/2024 11:1 1 AM CDT 08/09/2024 6:50 PM CDT us Papo Merchant MD LAB BLOOD ORDERABLES Final Resul t Performing Organization Address City/State/[facility] Co de Phone Number ARIA [facility] (MICHAEL) 1 [facility] [place] [address] * Allergen Alexandru grass (grass) IgE (08/09/2024 11:11 AM CDT) Alexandru grass IgE <0.10 0.00 - 0.34 kUnits/L Comment:Testing performed by : [facility], [address] [place] [address]., [id number] Blood 08/09/2024 11:1 1 AM CDT 08/09/2024 6:50 PM CDT Papo Merchant MD LAB BLOOD ORDERABLES Final Resul t ARIA [facility] (MICHAEL) [address] [place] [address] [place] [address] * Allergen [place] (tree) IgE (08/09/2024 11:11 AM CDT) [place] (tree) IgE <0.10 0.00 - 0.34 kUnits/L Comment:Testing performed by : [facility], [address] [place] [address]., [id number] Blood 08/09/2024 11:1 1 AM CDT 08/09/2024 6:50 PM CDT Papo Merchant MD LAB BLOOD ORDERABLES Final Resul t ARIA [facility] (MICHAEL) [address] [place] [address] [place] [address] * Allergen [place] armenian (tree) IgE (08/09/2024 11:11 AM CDT) [place] IgE <0.10 0.00 - 0.34 kUnits/L Comment:Testing performed by : [facility], [address] [place] [address], [place]., [address] Blood 08/09/2024 11:1 1 AM CDT 08/09/2024 6:50 PM CDT Papo Merchant MD LAB BLOOD ORDERABLES Final Resul t ARIA [facility]IRS[facility] (MICHAEL) 1 [facility] [place] [place] [address] * Allergen Maple/Box elder (tree) IgE (08/09/2024 11:11 AM CDT) Maple/box elder IgE <0.10 0.00 - 0.34 kUnits/L Comment:Testing performed by : [facility], [address] [place] [address]., [id number] Blood 08/09/2024 11:1 1 AM CDT 08/09/2024 6:50 PM CDT Papo Merchant MD LAB BLOOD ORDERABLES Final Resul t Performing Organization Address [facility] Co de Phone Number ARIA HIRSCH ([place]) [address] [place] [address] * Allergen Dodson red (tree) IgE (08/09/2024 11:11 AM CDT) Dodson IgE <0.10 0.00 - 0.34 kUnits/L Comment:Testing performed by : [facility], [address] [place] [address], [place]., [address] Blood 08/09/2024 11:1 1 AM CDT 08/09/2024 6:50 PM CDT Papo Merchant MD LAB BLOOD ORDERABLES Final Resul t Performing Organization Address City/[facility]/ZIP Co de Phone Number ARIA [facility] (MICHAEL) 1 [facility] [place] [address] from Last 3 Months Insurance [facility] MEDICARE GOLD [id number] [employer] MEDICARE GOLD Advance Directives For more information, please contact: [phone] * Full Code (Latest Code Status on File) Date Activated Date Inactivated Comments 07/11/2023 12:56 AM 08/01/2023 6:35 PM Care Teams Small Engine Trainer Relationship Specialty Start Date End Date Verónica Calle PA [address] [place] [address] PCP - General Physician Child Support Specialist 07/10/23
--- OUTSIDE RECORDS SUMMARY | 2024-10-14 09:03 | XMS_ITS | Continuity of Care Document ---
Author Organization [facility] Address [id number] [place] [address] utive [address] [place] [address] Phone Care Team Providers Care Cut Out Machine Operator Name Role Phone Mack OD, Steve Unavailable Unavailable Procedures Procedure Date Eye Exam Established Pt Eye Exam Established Pt Advance Directives Directive Yes / No Effective Date File Name No Information Encounters Encounter Description Practice Location Reason(s) For Visit Diagnoses Date Provider Providers Copied on Encounter formerly [facility], [address] [place] [address] [address], [place], [place], [id number], tel:[phone] [facility] No Information 3-200 8 Mack OD Steve. [address] [facility] , [address], [place], [place], [facility], [place]. tel:[phone] formerly [facility], [address] [place] [address] [address], [place], [place], [id number], tel:[phone] [facility] No Information 0-200 7 Mack OD Steve. [address] [facility] , [address], [place], [address], [place]. tel:[phone] Family History Family Member Type Diagnosis Age At Onset No Information Payers Payer name Insurance type Covered green party ID Authoriza tijosette(s) [facility] [facility] CI [id number] Social History Type Description Quantity Date Captured Comments Sex Female Smoking Status No Information Chief Complaint And Reason For Visit No Information Reason For Referral Reason For Referral No Information History Of Present Illness Encounter Date Complaint History Of Prese nt Illness No Information Functional Status Date Functional Assessmen t No Information Instructions Date Instruction Additional Infor mation No Information Assessments Type Assessment Date No Information Patient Care Teams Name Effective Dates (start - stop) Status Members No Information
--- OUTSIDE RECORDS SUMMARY | 2024-10-14 09:04 | XMS_ITS | Referral Summary ---
Author Organization [facility] Address [address] [place] [address] Care Team Providers Care Metal Buffer Name Role Phone Verónica Calle Primary Care Provider [phone] Encounters Date Type Department Care Team Description 08/25/2024 Results Follow-Up [facility] Pulmonary at [address] [place] [phone] Papo Merchant MD Allergen Rat mix (animal) IgE, Allergen Mouse mix (animal) IgE, Allergen Epithelia/dander dog (animal) IgE, Additional followed-up results: 24 08/09/2024 11:10 AM CDT Lab [address] Environmental allergies 08/09/2024 10:45 AM CDT Office Visit [facility] Pulmonary at [address] [place] [phone] Papo Merchant MD Environmental allergies (Primary Dx); Acute pulmonary embolism with acute cor pulmonale, unspecified pulmonary embolism type (HCC); Moderate persistent asthma without complication from Last 3 Months Allergies Active Allergy Reactions Criticality Noted Date Comments Alteplase Angioedema High 07/25/2023 During 07/2023 admission Erythromycin Rash Medium 02/02/2024 Medications atorvastatin (LIPITOR) 80 mg tablet Take 1 tablet (80 mg total) by mouth nightly 30 tablet 11 Active ondansetron ODT (ZOFRAN-ODT) 4 mg disintegrating [...] dysphagia so assessed prior to transfer to [facility] 07/31: No growth to date. No fever Dysphagia 07/27/2023 Assessment & Plan (08/01/2023 11:10 AM CDT): Due to critical illness - continue speech therapy - continue [place] and tube feeds; sugars have been fine without insulin 07/30: NG tube feeds (at goal rate 40ml/hr) held today to assess ability to increase p.o. intake and this was successful. Will resume tonight and then [facility] can adjust accordingly after her transfer [...] p.o. fluid intake. Ready for transfer to [facility]. PMR Consultation 07/30 Current functional status [...] and will not be adequately provided at [facility] facility or other post-acute level of care. Property Management Specialist successfully appealed denial from insurance company, and patient will go to [facility] tomorrow. Cardiac arrest 07/24/2023 Assessment & [...] (07/30/2023 9:18 PM CDT): 07/18: Febrile. BCx 2/ Staph Hominis positive. 07/19 BCx NGTD. - [...] apxiban 5mg bid this evening. Myocardial infarction Social History Tobacco Use Types Packs/Day Years [...] on file Legal Sex Female 2:19 AM [employer] WEIGH[employer] Gender Identity Not on file Sexual Orientation Not on file Last Filed Vital Signs Vital Sign Reading [...] 08/09/2024 10:22 AM CDT Plan of Treatment Not on file Procedures Procedure Name Priority Date/Time Associated Diagnosis [...] 11:11 AM CDT Environmental allergies ALLERGEN SYCAMORE CANADIAN (TREE) IGE Routine 08/09/2024 11:11 AM CDT Environmental allergies ALLERGEN WALNUT (TREE) IGE Routine 08/09/2024 11:11 AM CDT Environmental allergies ALLERGEN BERMUDA GRASS (GRASS) IGE Routine 08/09/2024 11:11 AM CDT Environmental allergies ALLERGEN ALEXANDRU GRASS (GRASS) IGE Routine 08/09/2024 11:11 AM CDT Environmental allergies ALLERGEN GINO GRASS (GRASS) IGE Routine 08/09/2024 11:11 AM CDT Environmental allergies ALLERGEN PLANTAIN YEMENI (WEED) IGE Routine 08/09/2024 11:11 AM CDT [...] 11:11 AM CDT Environmental allergies ALLERGEN COCKROACH CANADIAN (INSECT) IGE Routine 08/09/2024 11:11 AM CDT [...] - 0.34 kUnits/L Comment:Testing performed by : [facility], [address] [place] [address], [address] Blood 08/09/2024 11:1 1 AM CDT 08/09/2024 6:50 PM CDT Papo Merchant MD LAB BLOOD ORDERABLES Final Resul t Performing Organization Address City/[facility] Co de Phone Number [facility]OS[facility]VA [facility] ([place]) [address] [place] [address] [place] [address] * Allergen Mouse mix (animal) IgE (08/09/2024 11:11 AM CDT) Mouse mix IgE <0.10 0.00 - 0.34 kUnits/L Comment:Testing performed by : [facility], [address] [place] [address], [id number] Blood 08/09/2024 11:1 1 AM CDT 08/09/2024 6:50 PM CDT Papo Merchant MD LAB BLOOD ORDERABLES Final Resul t Performing Organization Address City/[facility] Co de Phone Number [facility] ([place]) [address] [place] [address] [place] [address] * Allergen Penicillium chrysogenum (mold) IgE (08/09/2024 11:11 AM CDT) Penicillium chrysogenum IgE <0.10 0.00 - 0.34 kUnits/L Comment:Testing performed by : [facility], [address] [place] [address], [address] Blood 08/09/2024 11:1 1 AM CDT 08/09/2024 6:50 PM CDT Papo Merchant MD LAB BLOOD ORDERABLES Final Resul t ARIA HIRSCH (WARREN) 1 [facility] [place] [address] * Allergen [place] (tree) IgE (08/09/2024 11:11 AM CDT) [place] IgE <0.10 0.00 - 0.34 kUnits/L Comment:Testing performed by : [facility], [address] [place] [address]., [id number] Blood 08/09/2024 11:1 1 AM CDT 08/09/2024 6:50 PM CDT Papo Merchant MD LAB BLOOD ORDERABLES Final Resul t Performing Organization Address City/[facility] Co de Phone Number ARIA HIRSCH ([place]) [address] [place] [address] [place] [address] * Allergen Mountain juniper (tree) IgE (08/09/2024 11:11 AM CDT) Mountain juniper IgE <0.10 0.00 - 0.34 kUnits/L Comment:Testing performed by : [facility], [address] [place] [address], [place]., [address] Blood 08/09/2024 11:1 1 AM CDT 08/09/2024 6:50 PM CDT Papo Merchant MD LAB BLOOD ORDERABLES Final Resul t ARIA [facility] ([place]) [address] [place] [address] [place] [address] * Allergen [place] grass (grass) IgE (08/09/2024 11:11 AM CDT) [place] grass IgE <0.10 0.00 - 0.34 kUnits/L Comment:Testing performed by : [facility], [address] [place] [address], [place]., [address] Blood 08/09/2024 11:1 1 AM CDT 08/09/2024 6:50 PM CDT Papo Merchant MD LAB BLOOD ORDERABLES Final Resul t ARIA [facility] (WARREN) 1 [facility] [place] [address] * Allergen Plantain egyptian (weed) IgE (08/09/2024 11:11 AM CDT) Plantain egyptian IgE <0.10 0.00 - 0.34 kUnits/L Comment:Testing performed by : [facility], [address] [place] [address], [id number] Blood 08/09/2024 11:1 1 AM CDT 08/09/2024 6:50 PM CDT Papo Merchant MD LAB BLOOD ORDERABLES Final Resul t Performing Organization Address City/[facility]/ZIP Co de Phone Number [facility] ([place]) [address] [place] [address] [place] [address] * Allergen Elm (tree) IgE (08/09/2024 11:11 AM CDT) Elm IgE <0.10 0.00 - 0.34 kUnits/L Comment:Testing performed by : [facility], [address] [place] [address]., [id number] Blood 08/09/2024 11:1 1 AM CDT 08/09/2024 6:50 PM CDT Papo Merchant MD LAB BLOOD ORDERABLES Final Resul t ARIA [facility] (WARREN) 1 [facility] [place] [address] * Allergen Cladosporium herbarum (mold) IgE (08/09/2024 11:11 AM CDT) Cladosporium herbarum IgE <0.10 0.00 - 0.34 kUnits/L Comment:Testing performed by : [facility], [address] [place] [address]., [id number] Blood 08/09/2024 11:1 1 AM CDT 08/09/2024 6:50 PM CDT Papo Merchant MD LAB BLOOD ORDERABLES Final Resul t Performing Organization Address City/[facility]/ZIP Co de Phone Number ARIA [facility] ([place]) [address] [place] [address] [place] [address] * Allergen Birch common silver (tree) IgE (08/09/2024 11:11 AM CDT) Birch common silver IgE <0.10 0.00 - 0.34 kUnits/L Comment:Testing performed by : [facility], [address] [place] [address]., [id number] Blood 08/09/2024 11:1 1 AM CDT 08/09/2024 6:50 PM CDT Papo Merchant MD LAB BLOOD ORDERABLES Final Resul t ARIA [facility] ([place]) [address] [place] [address] [place] [address] * Allergen Alternaria tenuis (mold) IgE (08/09/2024 11:11 AM CDT) Alternaria tenius IgE <0.10 0.00 - 0.34 kUnits/L Comment:Testing performed by : [facility], [address] [place] [address]., [id number] Blood 08/09/2024 11:1 1 AM CDT 08/09/2024 6:50 PM CDT Papo Merchant MD LAB BLOOD ORDERABLES Final Resul t ARIA HIRS[facility] (W[place]) [address] [place] [address] [place] [address] * Allergen Aspergillus fumigatus (mold) IgE (08/09/2024 11:11 AM CDT) Aspergillus fumigatus IgE <0.10 0.00 - 0.34 kUnits/L Comment:Testing performed by : [facility], [address] [place] [address], [id number] Blood 08/09/2024 11:1 1 AM CDT 08/09/2024 6:50 PM CDT Papo Merchant MD LAB BLOOD ORDERABLES Final Resul t Performing Organization Address City/[facility] Co de Phone Number ARIA HIRSCH (WARREN) [address] [place] [address] [place] [address] * Allergen Dermatophagoides pteronyssinus (insect) IgE (08/09/2024 11:11 AM CDT) Dermatophyton pteronyssinus IgE <0.10 0.00 - 0.34 kUnits/L Comment:Testing performed by : [facility], [address] [place] [address]., [id number] Blood 08/09/2024 11:1 1 AM CDT 08/09/2024 6:50 PM CDT Papo Merchant MD LAB BLOOD ORDERABLES Final Resul t ARIA HIRSCH (WARREN) [address] [place] [address] [place] [address] * Allergen Dermatophagoides farniae (insect) IgE (08/09/2024 11:11 AM CDT) Dermatophyton farinae IgE <0.10 0.00 - 0.34 kUnits/L Comment:Testing performed by : [facility], [address] [place] [address]., [address] Blood 08/09/2024 11:1 1 AM CDT 08/09/2024 6:50 PM CDT Papo Merchant MD LAB BLOOD ORDERABLES Final Resul t Performing Organization Address City/[facility] Co de Phone Number ARIA HIRSCH (W[place]EN) [address] [place] [address] * Allergen Epithelia/dander dog (animal) IgE (08/09/2024 11:11 AM CDT) Dog dander IgE <0.10 0.00 - 0.34 kUnits/L Comment:Testing performed by : [facility], [address] [place] [address], [id number] Blood 08/09/2024 11:1 1 AM CDT 08/09/2024 6:50 PM CDT us Papo Merchant MD LAB BLOOD ORDERABLES Final Resul t Performing Organization Address [facility] Co de Phone Number ARIA [facility] ([place]EN) [address] [place] [address] [place] [address] * Allergen Cockroach south korean (insect) IgE (08/09/2024 11:11 AM CDT) Cockroach IgE <0.10 0.00 - 0.34 kUnits/L Comment:Testing performed by : [facility], [address] [place] [address]., [id number] Blood 08/09/2024 11:1 1 AM CDT 08/09/2024 6:50 PM CDT us Papo Merchant MD LAB BLOOD ORDERABLES Final Resul t Performing Organization Address City/[facility] Co de Phone Number ARIA [facility] ([place]ARREN) [address] [place] [address] * Allergen Epithelia/dander cat (animal) IgE (08/09/2024 11:11 AM CDT) Cat dander IgE 0.22 0.00 - 0.34 kUnits/L Comment:Testing performed by : [facility], [address] [place] [address]., [id number] Blood 08/09/2024 11:1 1 AM CDT 08/09/2024 6:50 PM CDT us Papo Merchant MD LAB BLOOD ORDERABLES Final Resul t [facility] ([place]) [address] [place] [address] * Allergen Ragweed short/common (weed) IgE (08/09/2024 11:11 AM CDT) Ragweed common IgE <0.10 0.00 - 0.34 kUnits/L Comment:Testing performed by : [facility], [address] [place] [address], [address] Blood 08/09/2024 11:1 1 AM CDT 08/09/2024 6:50 PM CDT us Papo Merchant MD LAB BLOOD ORDERABLES Final Resul t ARIA [facility] ([place]) [address] [place] [address] * Allergen Pigweed, rough (weed) IgE (08/09/2024 11:11 AM CDT) Pigweed rough IgE <0.10 0.00 - 0.34 kUnits/L Comment:Testing performed by : [facility], [address] [place] [address], [place]., [address] Blood 08/09/2024 11:1 1 AM CDT 08/09/2024 6:50 PM CDT Papo Merchant MD LAB BLOOD ORDERABLES Final Resul t ARIA HIRSCH (WARREN) 1 [facility] [place] [address] * Allergen Nettle (weed) IgE (08/09/2024 11:11 AM CDT) Nettle IgE <0.10 0.00 - 0.34 kUnits/L Comment:Testing performed by : [facility], [address] [place] [address]., [address] Blood 08/09/2024 11:1 1 AM CDT 08/09/2024 6:50 PM CDT Papo Merchant MD LAB BLOOD ORDERABLES Final Resul t Performing Organization Address City/[facility] Co de Phone Number ARIA HIRSCH (W[place]EN) [address] [place] [address] * Allergen Santoro's quarter (weed) IgE (08/09/2024 11:11 AM CDT) Pathologist [facility] Santoro's quarters IgE <0.10 0.00 - 0.34 kUnits/L Comment:Testing performed by : [facility], [address] [place] [address], [place]., [address] Blood 08/09/2024 11:1 1 AM CDT 08/09/2024 6:50 PM CDT us Papo Merchant MD LAB BLOOD ORDERABLES Final Resul t ARIA HIRSCH ([place]EN) 1 [facility] [place] [address] * Allergen Gino grass (grass) IgE (08/09/2024 11:11 AM CDT) Gino grass IgE <0.10 0.00 - 0.34 kUnits/L Comment:Testing performed by : [facility], [address] [place] [address]., [id number] Blood 08/09/2024 11:1 1 AM CDT 08/09/2024 6:50 PM CDT Papo Merchant MD LAB BLOOD ORDERABLES Final Resul t Performing Organization Address City/[facility] Co de Phone Number ARIA [facility] (WARREN) [address] [place] [address] [place] [address] * Allergen Alexandru grass (grass) IgE (08/09/2024 11:11 AM CDT) Alexandru grass IgE <0.10 0.00 - 0.34 kUnits/L Comment:Testing performed by : [facility], [address] [place] [address], [address] Blood 08/09/2024 11:1 1 AM CDT 08/09/2024 6:50 PM CDT Papo Merchant MD LAB BLOOD ORDERABLES Final Resul t Performing Organization Address [facility] de Phone Number ARIA [facility] (WARREN) [address] [place] [address] * Allergen [place] (tree) IgE (08/09/2024 11:11 AM CDT) [place] (tree) IgE <0.10 0.00 - 0.34 kUnits/L Comment:Testing performed by : [facility], [address] [place] [address]., [address] Blood 08/09/2024 11:1 1 AM CDT 08/09/2024 6:50 PM CDT us Papo Merchant MD LAB BLOOD ORDERABLES Final Resul t Performing Organization Address City/[facility]/ZIP Co de Phone Number ARIA [facility] (WARREN) 1 [facility] [place] [address] * Allergen [place] south korean (tree) IgE (08/09/2024 11:11 AM CDT) [place] IgE <0.10 0.00 - 0.34 kUnits/L Comment:Testing performed by : [facility], [address] [place] [address]., [id number] Blood 08/09/2024 11:1 1 AM CDT 08/09/2024 6:50 PM CDT Papo Merchant MD LAB BLOOD ORDERABLES Final Resul t [facility]A [facility] ([place]) [address] [place] [address] * Allergen Maple/Box elder (tree) IgE (08/09/2024 11:11 AM CDT) Maple/box elder IgE <0.10 0.00 - 0.34 kUnits/L Comment:Testing performed by : [facility], [address] [place] [address], [place]., [address] Blood 08/09/2024 11:1 1 AM CDT 08/09/2024 6:50 PM CDT Papo Merchant MD LAB BLOOD ORDERABLES Final Resul t [facility]A [facility] ([place]) [address] [place] [address] * Allergen [place] red (tree) IgE (08/09/2024 11:11 AM CDT) [place] IgE <0.10 0.00 - 0.34 kUnits/L Comment:Testing performed by : [facility], [address] [place] [address], [place]., [address] Blood 08/09/2024 11:1 1 AM CDT 08/09/2024 6:50 PM CDT Papo Merchant MD LAB BLOOD ORDERABLES Final Resul t [facility] ([place]) 1 [facility] [place] [address] from Last 3 Months Insurance [employer] MEDICARE GOLD [employer] MED[employer]ARE GOLD Advance Directives For more information, please contact: [phone] * Full Code (Latest Code Status on File) Date Activated Date Inactivated Comments 07/11/2023 12:56 AM 08/01/2023 6:35 PM Care Teams Metal Buffer Relationship Specialty Start Date End Date Verónica Calle PA [address] [place] [address] PCP - General Physician [place] Spray Unit Feeder 07/10/23
--- OUTSIDE RECORDS SUMMARY | 2024-10-14 09:04 | XMS_ITS | Encounter Summary ---
Author Organization [facility] Address [address] [place] [address] Care Team Providers Care Skimmer Scoop Operator Name Role Phone Verónica Calle Primary Care Provider [phone] Encounter Details Date Type Department Care Team (Late st Contact Info) Description 08/25/2024 Results Follow-Up [facility] Pulmonary at [address] [place] [address] Papo Merchant MD [address] [place] [address] [address] [place] [address] Allergen Rat mix (animal) IgE, Allergen Mouse mix (animal) IgE, Allergen Epithelia/dander dog (animal) IgE, Additional followed-up results: 24 Social History Tobacco Use Types Packs/Day Years Used Date Smoking Tobacco: Former Cigarettes Passive Smoke Exposure: Current Smokeless Tobacco: Never Comments:Reports age 18 smok ed x 1.5 year few cigarettes per day [...] on file Legal Sex Female 2:19 AM [employer] Gender Identity Not on file Sexual Orientation Not on file documented as of this encounter Plan of Treatment Not on file documented as of this encounter Visit Diagnoses Not on filedocumented in this encounter Care Teams Skimmer Scoop Operator Relationship Specialty Start Date End Date Verónica Calle PA [address] [place] [address] PCP - General Physician Repatcher 07/10/23 documented as of this encounter
[2024-10-14 10:11] LABS: Potassium 4.3 mmol/L (3.4-5.0)
== END 2024-10-14 08:57 | disposition home or self-care (01) ==
LOC: ANHLAB 08:57
PROVIDERS: PCP Family Medicine; Visit Provider Nurse Practitioner Family
DX: E87.6 Hypokalemia (principal)
CPT/HCPCS: 36415; 84132

== ENCOUNTER 2025-03-29 12:25 | Outpatient (CLI) | payer MEDICARE, SELFPAY ==
--- NOTE | ~2025-03-29 | XR_ITS ---
XR abdomen/kub 1V 03/29/2025 12:40 INDICATION: Abdominal pain TECHNIQUE: KUB COMPARISON: 06/29/2008 FINDINGS: Bowel gas pattern is normal. There are cholecystectomy clips. There is mild dextroscoliosis of the lumbar spine. Lung bases unremarkable. There is no evidence of free air, mass, organomegaly, ascites or obstruction. No abnormal calculi are seen. The bones appear intact. IMPRESSION: 1: No acute abdominal abnormality identified. Reviewed, dictated and finalized at location O. [employer] CONSULTANT
--- OUTSIDE RECORDS SUMMARY | 2025-03-29 12:30 | XMS_ITS | Clinical Summary ---
Author Organization [facility] Address [address] [place] [address] Care Team Providers Care Computer Networking Instructor Name Role Phone Verónica Calle Primary Care Provider [phone] Allergies Active Allergy Reactions Criticality Noted Date Comments Alteplase Angioedema High 07/25/2023 During 07/2023 admission Erythromycin Rash Medium 02/02/2024 Vancomycin Rash Medium 01/27/2023 Medications atorvastatin (LIPITOR) 80 mg tablet Take [...] day as needed for pain 4 Active benzocaine-menthoL (CHLORASEPTIC) 6-10 mg lozenge [...] not swallow. 10.2 g 11 5 Active apixaban (ELIQUIS) 2.5 mg tablet Take 1 tablet (2.5 mg total) by mouth 2 (two) times a day 60 tablet 11 5 Active Active Problems Problem Noted [...] dysphagia so assessed prior to transfer to [facility] 07/31: No growth to date. No fever Dysphagia 07/27/2023 Assessment & Plan (08/01/2023 11:10 AM CDT): Due to critical illness - continue speech therapy - continue [place] and tube feeds; sugars have been fine without insulin 07/30: NG tube feeds (at goal rate 40ml/hr) held today to assess ability to increase p.o. intake and this was successful. Will resume tonight and then [facility] can adjust accordingly after her transfer [...] p.o. fluid intake. Ready for transfer to [facility]. PMR Consultation 07/30 Current functional status [...] and will not be adequately provided at intermediate facility or other post-acute level of care. 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 Cardiac arrest 07/24/2023 Assessment & [...] (07/30/2023 9:18 PM CDT): 07/18: Febrile. BCx 2/2 Staph Hominis positive. 07/19 BCx NGTD. - [...] apxiban 5mg bid this evening. Myocardial infarction Surgical History Surgery Date Site/Laterality Comments EYE [...] cigarettes per day AUDIT-C Answer Date Recorded Frequency of Alcohol Consumption Not on file 12/13/2024 Q2: How many drinks containi ng alcohol do you have on a typical day when you are drinking? Patient does not drink Frequency of Binge Drinking Not on file 11/2024 Personal Safety Answer Date Recorded Have you ever been in or are you currently in a harmful physical or emotional relationship or is someone making you feel afraid or unsafe? 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 Gender Identity Not on file Sexual Orientation Not on file Last Filed Vital Signs Vital Sign Reading Time Taken Comments Blood Pressure 144/76 12/13/2024 10:46 AM CDT Pulse 63 12/13/2024 10:46 AM CDT Temperature 36.3 C (97.3 F) 12/13/2024 10:46 AM CDT Respiratory Rate 16 12/13/2024 10:4 6 AM CDT Oxygen Saturation 94% 12/13/2024 10: 46 AM CDT Inhaled Oxygen Concentration - - Weight 75.6 kg (166 lb 11.2 oz) 025 10:46 AM CDT Height 162.6 cm (5' 4) 12/13/2024 10:4 6 AM CDT Body Mass Index 28.61 12/13/2024 10:46 AM CDT Plan of Treatment Health Maintenance Due Date Last Done Comments Depression Screening 1945 Hepatitis C Screening 1945 Osteoporosis Screening-Bone Density Scan 1945 Hepatitis B Screening 09[birth year]26/1963 Well Visit 65+ 2010 Zoster Vaccine (2 of 2) 01/08/2022 11/13/2021 Fall Risk Assessment 07/31/2024 08/01/2023 Covid-19 Vaccine ( - season) 2024 01/30/2022, 11/01/2020, 10/03/2020 Influenza Vaccine (#1) 2024 DTaP/Tdap/Td Vaccine (2 - Td or Tdap) 10/26/2031, 11/26/2010 Pneumococcal vaccine 65+ Completed 10/25/2021, 01/05 Insurance [facility] MEDICARE GOLD [facility] [employer] G[employer] Advance Directives For more information, please contact: [phone] * Full Code (Latest Code Status on File) Date Activated Date Inactivated Comments 07/11/2023 12:56 AM 08/01/2023 6:35 PM Care Teams Computer Networking Instructor Relationship Specialty Start Date End Date Verónica Calle PA [address] [place] [address] PCP - General Physician Online Merchandising Coordinator 07/10/23
== END 2025-03-29 12:26 | disposition home or self-care (01) ==
PROVIDERS: PCP Family Medicine; Visit Provider Nurse Practitioner Family
DX: R10.9 Unspecified abdominal pain (principal)
CPT/HCPCS: 74018